=== PATIENT | male | born 1930 ===

== ENCOUNTER 2016-08-04 21:53 | Observation (INO) | payer MEDICARE ==
[2016-08-04 22:03] VITALS: BMI 22.0
--- NOTE | 2016-08-04 22:26 | ED PDOC ---
Arrival/HPI - General Chief Complaint: Trauma Time Seen by Provider: 08/04/16 22:21 Historian: Patient, Family - History of Present Illness Narrative History of Present Illness (Text): 08/04/16 22:26 Lawson Bartlett is an 86 year old male, whose past medical history includes chronic renal insufficiency on hemodialysis, CAD, aortic stenosis, and CHF, who presents to the ED accompanied by relative s/p fall. Relative states patient fell and hit his head against the floor while getting up from his recliner at 16 :00 today. Relative also notes patient attempted to supports himself and sustained an abrasion to his left elbow. Relative states patient feels fine but notes he regularly takes blood thinners. Patient was fully dialyzed today. Patient denies any loss of consciousness, vision changes, focal neurological deficits, fever, chills, chest pain, shortness of breath, nausea, vomiting, diarrhea, urinary symptoms, back pain, neck pain, headache, dizziness, or any other complaints. PMD: Dr. Rivera Surgical Training Specialist: Dr. Vasquez Time/Duration: Other (tonight) Symptom Onset: Gradual Activities at Onset: Rest, Light Context: Standing, Home Past Medical History - Provider Review Nursing Documentation Reviewed: Yes - Infectious Disease Hx of Infectious Diseases: None - Tetanus Immunization Tetanus Immunization: Unknown - Cardiac Hx Cardiac Disorders: Yes (CAD) Hx Hypertension: Yes - Pulmonary Hx Respiratory Disorders: No - Neurological Hx Neurological Disorder: Yes - HEENT Hx HEENT Disorder: Yes (glasses) Hx Cataracts: Yes (b/l sx) Hx Deafness: Yes (b/l hearing aids) - Renal Hx Dialysis: Yes Type of Dialysis Access: right jugular permacath Date of Last Dialysis Treatment: 08/04/16 Hx Renal Failure: Yes - Endocrine/Metabolic Hx Endocrine Disorders: No - Hematological/Oncological Hx Blood Transfusions: No Hx Blood Transfusion Reaction: No - Integumentary Hx Dermatological Disorder: No (BILATERAL LEG SKIN DRYNESS,FLAKY.SPIDER VEINS) - Musculoskeletal/Rheumatological Hx Arthritis: Yes - Gastrointestinal Hx Gastrointestinal Disorders: Yes Hx Gastroesophageal Reflux: Yes - Genitourinary/Gynecological Hx Genitourinary Disorders: No - Psychiatric Hx Emotional Abuse: No Hx Physical Abuse: No Hx Substance Use: No - Surgical History Hx Cardiac Catheterization: Yes Hx Coronary Stent: Yes (X3) - Anesthesia Hx Anesthesia Reactions: No Hx Malignant Hyperthermia: No - Suicidal Assessment Feels Threatened In Home Enviroment: No Family/Social History - Physician Review Nursing Documentation Reviewed: Yes Family/Social History: No Known Family HX Smoking Status: Former Smoker Hx Alcohol Use: No Hx Substance Use: No Hx Substance Use Treatment: No Allergies/Home Meds Allergies/Adverse Reactions: Allergies adhesive tape Allergy (Verified 08/04/16 22:04) RASH Home Medications: Home Meds Medication Instructions Recorded Confirmed Aspirin [Aspir 81] 81 mg PO DAILY 02/12/13 08/04/16 Febuxostat [Uloric] 40 mg PO TTS 11/25/14 08/04/16 Atorvastatin [Lipitor] 20 mg PO DAILY 08/04/16 08/04/16 Clopidogrel [Plavix] 75 mg PO DAILY 08/04/16 08/04/16 Midodrine [Proamatine] 5 mg PO DAILY 08/04/16 08/04/16 Tamsulosin [Flomax] 0.4 mg PO DAILY 08/04/16 08/04/16 Review of Systems - Physician Review All systems were reviewed & negative as marked: Yes - Review of Systems Constitutional: Normal. absent: Fevers Eyes: Normal ENT: Normal Respiratory: Normal. absent: SOB, Cough Cardiovascular: Normal. absent: Chest Pain Gastrointestinal: Normal. absent: Abdominal Pain, Diarrhea, Nausea, Vomiting Genitourinary Male: Normal. absent: Dysuria, Frequency, Hematuria, Urinary Output Changes Musculoskeletal: Normal. absent: Back Pain, Neck Pain Skin: Other (+abrasion to left elbow). absent: Rash Neurological: Normal. absent: Headache, Dizziness Endocrine: Normal Hemo/Lymphatic: Normal Psychiatric: Normal Physical Exam Vital Signs Reviewed: Yes Vital Signs Temp Pulse Pulse Pulse Resp BP Pulse Ox 08/05/16 02:45 90/62 L 08/05/16 02:00 91 H 08/05/16 01:54 97.6 F 90 20 86/51 L 96 08/05/16 01:35 98 F 80 20 98/60 L 97 08/05/16 01:26 90 90 20 08/04/16 23:41 98 F 88 20 98/60 L 97 08/04/16 22:10 97.4 F L 98 H 14 95/63 L 97 Temperature: Afebrile Blood Pressure: Normal Pulse: Regular Respiratory Rate: Normal Appearance: Positive for: Well-Appearing, Non-Toxic, Comfortable Pain Distress: None Mental Status: Positive for: Alert and Oriented X 3 - Systems Exam Head: Present: Atraumatic, Normocephalic Pupils: Present: PERRL Extroacular Muscles: Present: EOMI Conjunctiva: Present: Normal Mouth: Present: Moist Mucous Membranes Neck: Present: Normal Range of Motion Respiratory/Chest: Present: Clear to Auscultation, Good Air Exchange. No: Respiratory Distress, Accessory Muscle Use Cardiovascular: Present: Regular Rate and Rhythm, Normal S1, S2. No: Murmurs Abdomen: Present: Normal Bowel Sounds. No: Tenderness, Distention, Peritoneal Signs Back: Present: Normal Inspection Upper Extremity: Present: Other (Skin tear to left elbow with ecchymosis). No: Cyanosis, Edema Lower Extremity: Present: Normal Inspection. No: Edema Neurological: Present: GCS=15, CN II-XII Intact, Speech Normal Skin: Present: Warm, Dry, Normal Color. No: Rashes Psychiatric: Present: Alert, Oriented x 3, Normal Insight, Normal Concentration Medical Decision Making ED Course and Treatment: 08/04/16 22:26 Impression: 86 year old male presents s/p mechanical fall at 17:30. Plan: -- CT Head w/o contrast -- Reassess and disposition Prior Visits: Notes and results from previous visits were reviewed. On 05/21/2016, pt was seen in the ED for shortness of breath, bilateral lower extremity swelling, and wheezing. Pt was admitted to the hospital for further evaluation. Progress Notes: 08/04/16 23:06 Reviewed radiology, CT Head shows: 1. There is subdural hemorrhage along the right tentorium cerebelli and about the right middle cranial fossa. This measures 5-6 mm in thickness on series 2, image 18. 2. There is mild right frontal scalp hematoma. 3. Additional incidental and/or chronic findings as described. EKG, Labs, and Chest X-ray ordered. Paged neurosurgeon. 08/04/16 23:[address] Iverson, neurosurgeon covering for Dr. Talbot, who is aware and agrees with plan. Paged Dr. Rivera. 08/05/16 01:20 Reviewed EKG, sinus rhythm at 90 bpm. LAD. RBBB. Non-specific ST/T wave changes. - Lab Interpretations Lab Results: 08/04/16 23:31 08/04/16 23:31 Lab Results 08/04/16 23:31: WBC 3.6 L, RBC 3.26 L, Hgb 10.7 L, Hct 32.8 L, MCV 100.6, MCH 32.8, MCHC 32.6, RDW 17.7 H, Plt Count 63 L, MPV 10.4, Gran % 62.2, Lymph % ( Auto) 22.5, Victoria % (Auto) 9.3 H, Eos % (Auto) 5.2 H, Baso % (Auto) 0.8, Gran # 2.26, Lymph # 0.8 L, Victoria # 0.3, Eos # 0.2, Baso # 0.03, PT 12.3 H, INR 1.14 H, APTT 27.7, Sodium 135, Potassium 3.7, Chloride 97 L, Carbon Dioxide 30, Anion Gap 12, BUN 16, Creatinine 2.6 H, Est GFR ( Amer) 28, Est GFR (Non-Af Amer) 23, Random Glucose 103, Calcium 9.3, Total Bilirubin 0.6, AST 25, ALT 10, Alkaline Phosphatase 72, Total Protein 6.7, Albumin 3.7, Globulin 3.0, Albumin/ Globulin Ratio 1.2 I have reviewed the lab results: Yes - RAD Interpretation Narrative RAD Interpretations (Text): CT Head shows: Brain: There is subdural hemorrhage along the right tentorium cerebelli and about the right middle cranial fossa. There is moderate prominence of ventricles and sulci, compatible with moderate atrophy. There is moderate diminished density of the white matter bilaterally, consistent with moderate microangiopathy. No evidence of acute territorial infarction. Ventricles: See above. Bones/joints: Unremarkable. No acute fracture. Soft tissues: There is mild right frontal scalp hematoma. Sinuses: Unremarkable as visualized. No acute sinusitis. Mastoid air cells: Unremarkable as visualized. No mastoid effusion. IMPRESSION: 1. There is subdural hemorrhage along the right tentorium cerebelli and about the right middle cranial fossa. This measures 5-6 mm in thickness on series 2, image 18. 2. There is mild right frontal scalp hematoma. 3. Additional incidental and/or chronic findings as described. Radiology Orders: 08/04/16 22:28 HEAD W/O CONTRAST [CT] Stat 08/04/16 23:13 CHEST PORTABLE [RAD] Stat Pipe Joints Supervisor: Radiologist - Medication Orders Current Medication Orders: Atorvastatin Calcium (Lipitor) 20 mg PO DIN [facility] Last Admin: 08/05/16 17:13 Dose: 20 MG Home Med (Home Med) 1 unit PO TTS [facility] Discontinued Medications Aspirin (Ecotrin) 81 mg PO DAILY [facility] Last Admin: 08/05/16 09:38 Dose: 81 MG Clopidogrel Bisulfate (Plavix) 75 mg PO DAILY [facility] Last Admin: 08/05/16 09:38 Dose: 75 MG Sodium Chloride (Sodium Chloride 0.9%) 250 mls @ 999 mls/hr IV .Q16M STA Stop: 08/05/16 02:14 Last Admin: 08/05/16 02:05 Dose: 999 MLS/HR eMAR Start Stop Document 08/05/16 02:05 DS (Rec: 08/05/16 02:10 DS [id number]) Intravenous Solution Start Date 08/05/16 Start Time 02:05 End Date 08/05/16 End time 02:20 Total Infusion Time 15 NIHSS Scale (Cabot) Time Performed: 22:26 - How Severe is the Stoke Baseline Level of Consciousness: 0=Alert LOC to Questions: 0=Both comments correct LOC to commands: 0=Obeys both correctly Best Gaze: 0=Normal Visual: 0=No visual loss Facial: 0=Normal Motor Arm - Left: 0=No drift Motor Arm - Right: 0=No drift Motor Leg - Left: 0=No drift Motor Leg - Right: 0=No drift Limb Ataxia: 0=Absent Sensory: 0=Normal Best Language: 0=No aphasia Dysarthia: 0=Normal articulation Extinction & Inattention (Neglect): 0=Normal, no object Score: 0 Risk Level: No Stroke Risk rTPA Inclusion/Exclusion - Refusal of Treatment Patient Refused Treatment: No - Inclusion Criteria for Altepase Patient is 18 years or Older: Yes The Clinical Diagnosis of Ischemic Stroke That is Causing a Potentially Disabling Neurological Deficit: No Time of Onset is Well Established to be Less Than 270 Minute Before Treatment Would Begin: No Risk/Benefit Discussed With Patient/Family Member Present: Yes - Exclusion Criteria for Altepase Uncontrolled Hypertension at Time of Treatment (Systolic BP above 185 or Diastolic BP above 110 mmHg): No Evidence of an Intracranial Hemorrhage: Yes - Scribe Statement The provider has reviewed the documentation as recorded by the Scribe Paty Jennifer Provider Attestation: All medical record entries made by the Isael were at my direction and personally dictated by me. I have reviewed the chart and agree that the record accurately reflects my personal performance of the history, physical exam, medical decision making, and the department course for this patient. I have also personally directed, reviewed, and agree with the discharge instructions and disposition. Disposition/Present on Arrival - Present on Arrival Any Indicators Present on Arrival: No History of DVT/PE: No History of Uncontrolled Diabetes: No Urinary Catheter: No History of Decub. Ulcer: No History Surgical Site Infection Following: None - Disposition Have Diagnosis and Disposition been Completed?: Yes Diagnosis: Subdural hematoma Disposition: HOSPITALIZED Disposition Time: 23:40 Condition: GOOD
--- NOTE | 2016-08-04 23:03 | CT ---
EXAM: CT Head Without Intravenous Contrast CLINICAL HISTORY: 86 years old, male; Injury or trauma; Fall TECHNIQUE: Axial computed tomography images of the head/brain without intravenous contrast. This CT exam was performed using one or more of the following dose reduction techniques: automated exposure control, adjustment of the mA and/or kV according to patient size, and/or use of iterative reconstruction technique. COMPARISON: No relevant prior studies available. FINDINGS: Brain: There is subdural hemorrhage along the right tentorium cerebelli and about the right middle cranial fossa. There is moderate prominence of ventricles and sulci, compatible with moderate atrophy. There is moderate diminished density of the white matter bilaterally, consistent with moderate microangiopathy. No evidence of acute territorial infarction. Ventricles: See above. Bones/joints: Unremarkable. No acute fracture. Soft tissues: There is mild right frontal scalp hematoma. Sinuses: Unremarkable as visualized. No acute sinusitis. Mastoid air cells: Unremarkable as visualized. No mastoid effusion. IMPRESSION: 1. There is subdural hemorrhage along the right tentorium cerebelli and about the right middle cranial fossa. This measures 5-6 mm in thickness on series 2, image 18. 2. There is mild right frontal scalp hematoma. 3. Additional incidental and/or chronic findings as described.
[2016-08-04 23:41] LABS: ADD MANUAL DIFF? NO
[2016-08-04 23:44] LABS: BASO # 0.03 K/mm3 (0.0-2.0); BASO % 0.8 % (0.0-3.0); EOS # 0.2 (0.0-0.7); EOS % 5.2 % (1.5-5.0); GRAN # 2.26 (1.4-6.5); GRAN % 62.2 % (50.0-68.0); HEMATOCRIT 32.8 % (42.0-52.0); LYMPH # 0.8 (1.2-3.4); LYMPH % 22.5 % (22.0-35.0); MEAN CELL VOLUME 100.6 fL (80.0-105.0); MEAN CORPUSCULAR HEMOGLOBIN 32.8 pg (25.0-35.0); MEAN CORPUSCULAR HGB CONC 32.6 g/dl (31.0-37.0); MEAN PLATELET VOLUME 10.4 fl (7.0-11.0); MONO # 0.3 (0.1-0.6); MONO % 9.3 % (1.0-6.0); PLATELET COUNT 63 10^3/uL (120.0-450.0); RED CELL DISTRIBUTION WIDTH 17.7 % (11.5-14.5); WHITE BLOOD COUNT 3.6 10^3/ul (4.5-11.0)
[2016-08-04 23:55] LABS: ALB/GLOB RATIO 1.2 (1.1-1.8); BILIRUBIN,TOTAL 0.6 mg/dL (0.2-1.3); CALCIUM 9.3 mg/dL (8.4-10.5); POTASSIUM 3.7 mmol/L (3.6-5.0); TOTAL PROTEIN 6.7 g/dL (5.8-8.3)
[2016-08-04 23:56] LABS: INR 1.14 (0.93-1.08); PARTIAL THROMBOPLASTIN TIME 27.7 Seconds (23.7-30.8)
[2016-08-05] MEDS ORDERED: Sodium Chloride 0.9% 250 ML IV STA (01:59)
[2016-08-05 06:53] LABS: ADD MANUAL DIFF? NO
[2016-08-05 07:00] LABS: BASO # 0.03 K/mm3 (0.0-2.0); BASO % 0.9 % (0.0-3.0); EOS # 0.2 (0.0-0.7); EOS % 5.5 % (1.5-5.0); GRAN # 1.98 (1.4-6.5); GRAN % 60.3 % (50.0-68.0); HEMATOCRIT 30.9 % (42.0-52.0); LYMPH # 0.8 (1.2-3.4); LYMPH % 23.5 % (22.0-35.0); MEAN CORPUSCULAR HEMOGLOBIN 32.7 pg (25.0-35.0); MEAN CORPUSCULAR HGB CONC 32.4 g/dl (31.0-37.0); MEAN PLATELET VOLUME 9.6 fl (7.0-11.0); MONO # 0.3 (0.1-0.6); MONO % 9.8 % (1.0-6.0); PLATELET COUNT 59 10^3/uL (120.0-450.0); RED CELL DISTRIBUTION WIDTH 17.7 % (11.5-14.5); WHITE BLOOD COUNT 3.3 10^3/ul (4.5-11.0)
--- NOTE | 2016-08-05 08:41 | CARD ---
APPROVED REPORT EKG Measurement Heart [id number] CT 208P [id number] <Conclusion> Sinus rhythm with premature supraventricular complexes Left axis deviation Right bundle branch block Abnormal ECG
--- NOTE | 2016-08-05 09:20 | RAD ---
HISTORY: fall COMPARISON: No prior. FINDINGS: LUNGS: Right lower lobe infiltrate. PLEURA: Right pleural effusion. CARDIOVASCULAR: Normal. OSSEOUS STRUCTURES: No significant abnormalities. VISUALIZED UPPER ABDOMEN: Normal. OTHER FINDINGS: Right Port-A-Cath in place. Status post CABG. IMPRESSION: Right lower lobe infiltrate and effusion.
--- NOTE | 2016-08-05 13:25 | CON ---
DATE: 08/04/2016 An 86-year-old gentleman, fell 8 hours or so before arrival in the ER, was on Plavix and aspirin, was found to have an infinitesimal extraaxial hemorrhage along the right tentorium of no clinical signif icance. Would not have any recommendations. There is no neurosurgical involvement required. Dennis Iverson MD cc: [id number] TT: 08/05/2016 13:24:07 Confirmation # [id number] Dictation # [id number] mn
--- NOTE | 2016-08-05 15:27 | HP ---
HISTORY OF PRESENT ILLNESS: The patient is an 86-year-old [place] male with a long history of hyper tension, chronic renal insufficiency, stage IV, on dialysis, status post TAVR procedure for aortic st enosis, status post acute renal failure, on top of chronic renal insufficiency. The patient is prese ntly on dialysis, also a history of insulin-dependent diabetes mellitus, and hypertension. The patie nt was at home yesterday and apparently had fallen from his chair an developed a contusion of the rig ht orbit and face, with a subdural hematoma. The patient is awake and alert, but does not completely able to elucidate the incidence of what occurred last evening. The patient was brought in last [facility] t and admitted on 08/04/2016 for his subdural, change in mental status, confusion, and scalp and face contusion. The patient is a nondrinker, nonsmoker. He has no history of illicit drug abuse. REVIEW OF SYSTEMS: Positive only for confusion, disorientation, head pain, scalp pain. The patient also complains of some whistling in his chest. Denies any chest pain, palpitations, shortness of miky ath, diaphoresis. RESPIRATORY: Negative for shortness of breath, cough, sputum production. GASTROI NTESTINAL: Negative for nausea, vomiting, diarrhea, abdominal pain. MUSCULOSKELETAL: Positive only for head and scalp pain. PHYSICAL EXAMINATION: GENERAL: Shows a well-developed, elderly Hungarian male lying in bed, awake and alert, and tolerating his breakfast well. NEUROLOGIC: Grossly intact. HEENT: Extraocular muscles are intact. Pupils are equal and reactive to light and accommodation. There is a large ecchymosis in the periorbital area. The patient is oriented to person and place, bu t not to time at this point, and does not have full recollection of the preceding events. His speech is fluent. NEUROLOGIC: His strength is normal in the upper and lower extremities. His reflexes are 2+ and bris k. His sensation is normal. Balance and cerebellar is not assessed at this point. CHEST: Clear to auscultation. HEART: Regular sinus rhythm. Systolic ejection murmur, left sternal border, without radiation. ABDOMEN: Soft. EXTREMITIES: Without cyanosis, clubbing, or edema. SKIN: A large ecchymosis of the right periorbital area and the right temporal scalp. IMPRESSION: 1. Fall with contusion of the scalp and right periorbital area and subdural hematoma. 2. Possible syncope. 3. Dialysis. 4. End-stage renal disease. 5. Aortic stenosis, status post TAVR procedure. 6. Coronary artery disease. Gwyn Rivera MD cc: [id number] TT: 08/05/2016 15:27:32 vn
--- NOTE | 2016-08-05 23:59 | CP.PCM.PN ---
Subjective - Date & Time of Evaluation Date of Evaluation: 08/05/16 Time of Evaluation: 23:56 - Subjective Subjective: Nurse Javad tells me that blood pressure is 88/56.He is asymptomatic. Patient has no complaints. Medical record was reviewed. 86 year old male was admitted with history of fall ,syncope with subdural hematoma,right periorbital contusion. Has PMH of HTN, CAD,MS, CHF,CKD-IV, S/P TAVR for aortic stenosis, permacath placement. Objective - Vital Signs/Intake and Output Vital Signs (last 24 hours): Temp Pulse Resp BP Pulse Ox 98.3 F 92 H 20 84/53 L 100 08/05/16 18:00 08/05/16 22:00 08/05/16 18:00 08/05/16 18:00 08/05/16 18:00 Intake and Output: 08/05/16 08/06/16 18:59 06:59 Intake Total 600 Output Total 1 Balance 599 - Medications Medications: Current Medications Atorvastatin Calcium (Lipitor) 20 mg PO DIN [facility] Last Admin: 08/05/16 17:13 Dose: 20 mg Home Med (Home Med) 1 unit PO TTS [facility] - Labs Labs: 08/05/16 06:51 PT 12.3 Seconds (9.9-11.8) H 08/04/16 23:31 INR 1.14 (0.93-1.08) H 08/04/16 23:31 APTT 27.7 Seconds (23.7-30.8) 08/04/16 23:31 - Constitutional Appears: Well, No Acute Distress - Head Exam Head Exam: ATRAUMATIC, NORMAL INSPECTION, NORMOCEPHALIC - Eye Exam Eye Exam: Normal appearance Additional comments: Right periorbital echymosis present. - ENT Exam ENT Exam: Normal External Ear Exam Additional comments: Right ear has hearing AID. - Neck Exam Neck Exam: Normal Inspection - Respiratory Exam Respiratory Exam: NORMAL BREATHING PATTERN - Cardiovascular Exam Cardiovascular Exam: absent: JVD - GI/Abdominal Exam GI & Abdominal Exam: absent: Distended - Rectal Exam Rectal Exam: Deferred - Extremities Exam Extremities Exam: Normal Inspection - Back Exam Back Exam: NORMAL INSPECTION - Neurological Exam Neurological Exam: Alert, Oriented x3 - Psychiatric Exam Psychiatric exam: Normal Affect, Normal Mood - Skin Skin Exam: Normal Color Assessment and Plan - Assessment and Plan (Free Text) Assessment: A/P:Hypotension vs .Low blood pressure reading. Hx of CAD. Hx of MS. CKD. Deafness. Anemia. Recheck blood pressure.-/62.
[2016-08-06 05:32] VITALS: BP 89/55; PULSE 89; RESP 19; TEMP 98.3; O2SAT 98
--- NOTE | 2016-08-06 08:29 | CON ---
DATE: 08/05/2016 HISTORY OF PRESENT ILLNESS: This is an 86-year-old male with a past medical history of hypertension and chronic renal disease on dialysis. The patient has diabetes, hypertension and on dialysis. The patient fell from the chair and developed a contusion on the right periorbital area and forehead and was brought to the hospital and found to have subdural hematoma and was seen by Dr. Dennis Iverson, helene tijerinaurgeon and no surgical intervention. PAST MEDICAL HISTORY: As above. REVIEW OF SYSTEMS: A 10-point review of system was negative except for confusion and right periorbit al hematoma. PHYSICAL EXAMINATION: HEENT: Normocephalic, atraumatic. Right periorbital area secondary to fall. NEUROLOGIC: Alert, awake, oriented to self and place. Cranial nerves II through XII were tested. P upils reactive. Spontaneous movement of all the extremities noted. Deep tendon reflexes 1+. Both p lantars are downgoing. Sensory appears intact. Cerebellar and gait deferred. IMPRESSION: Syncope and subdural hematoma secondary to fall, multiple medical problems, on dialysis because of end-stage renal disease, hypertension and diabetes. Workup is in progress. Will followup . Pk German MD cc: [id number] TT: 08/05/2016 16:48:57 Confirmation # [id number] Dictation # [id number] judy
--- NOTE | 2016-08-06 09:24 | PN ---
DATE: 08/06/2016 An 86-year-old Palestinian male, status post TAVR, status post CAD, end-stage renal disease, status post fall with contusion of the right temporal area, periorbital area and a subdural hematoma. The patie nt is for repeat CT. Aspirin and Plavix are on hold. The patient will have repeat CT. If the subdu ral has not changed, patient will be discharged home in improved condition. PHYSICAL EXAMINATION: GENERAL: The patient is awake, alert, oriented x 3. NEUROLOGIC: Grossly intact. Physical examination is unchanged. REVIEW OF SYSTEMS: A 12-point is unremarkable. Gwyn Rivera MD cc: [id number] TT: 08/06/2016 09:23:59 Confirmation # [id number] Dictation # [id number] en
--- NOTE | 2016-08-06 10:29 | CT ---
PROCEDURE: CT HEAD WITHOUT CONTRAST. HISTORY: fall- subdural hemorhage follow up COMPARISON: 08/04/2016 TECHNIQUE: Axial computed tomography images were obtained through the head/brain without intravenous contrast. Radiation dose: Total exam DLP = 756.49 mGy-cm. This CT exam was performed using one or more of the following dose reduction techniques: Automated exposure control, adjustment of the mA and/or kV according to patient size, and/or use of iterative reconstruction technique. FINDINGS: HEMORRHAGE: There is redemonstration of evolving subdural hemorrhage in the right middle cranial fossa and along the right tentorium cerebellum, slightly decreased in size since the prior examination. BRAIN: There is no mass or mass effect. There are mild chronic microangiopathic changes. VENTRICLES: There is moderate global parenchymal volume loss and proportionate enlargement of the ventricles and cortical sulci with frontal predominance. CALVARIUM: The skull base and calvarium are normal. PARANASAL SINUSES: Predominantly clear. MASTOID AIR CELLS: Predominantly clear. OTHER FINDINGS: None. IMPRESSION: Expected evolution of known right temporal subdural hemorrhage and subdural hemorrhage along the right tentorium cerebelli. Mild chronic microangiopathic changes and moderate global parenchymal volume loss with frontal predominance.
--- NOTE | 2016-08-06 10:58 | CON ---
DATE: 08/06/2016 CARDIOLOGY CONSULTATION HISTORY: The patient is an 86-year-old male who presented with a fall. He was found to have a subdu ral hematoma. PAST MEDICAL HISTORY: Notable for critical aortic stenosis in which he was sent to [facility] for a TAVR. In addition, in preparation for the TAVR, the patient underwent PTCA and stent with a drug-eluting st ent in 05/2016. The patient also suffers from end-stage renal disease in which he has been treated with dialysis. Th e patient is awake, alert. No shortness of breath, no chest pain. SOCIAL HISTORY: The patient lives at home. REVIEW OF SYSTEMS: A 14-point review of systems was free of cardiac symptomatology. PHYSICAL EXAMINATION: VITAL SIGNS: Blood pressure is 90 systolic. Heart rate in the 80s. NECK: Negative JVD. LUNGS: Without rales. HEART: With S1, S2. II/ systolic ejection murmur. EXTREMITIES: Without edema. EKG shows no changes from the previous. LABORATORY DATA: Hemoglobin is 10.0. BUN and creatinine are 16 and 2.6. IMPRESSION: 1. Status post fall with subdural hematoma. 2. No neurosurgical intervention is necessary, as per consultations. 3. Stable angina. 4. History of aortic stenosis. 5. History of percutaneous transluminal coronary angioplasty and stent with a drug-eluting stent. Given these findings, the patient should remain on Plavix unless it is felt by neurosurgery that Valerio vix needs to be stopped because of subdural hematoma. His drug-eluting stent requires Plavix. If we stop Plavix, he would be at increased risk for acute stent thrombosis, which would result in a myoca rdial infarction. Preston Vasquez MD cc: [id number] TT: 08/06/2016 10:57:45 Confirmation # [id number] Dictation # [id number] len
--- NOTE | 2016-08-06 12:34 | PN ---
DATE: 08/06/2016 ADDENDUM The neurosurgeon recommended stopping aspirin and Plavix for the next week. However, I called the ne urosurgeon back with my concerns about a drug-eluting stent that was placed in May. After collab orative discussion of risks, benefits, it was decided that the patient will be on Plavix daily and we will stop his aspirin for 1 week. We will follow him up as an outpatient. Preston Vasquez MD cc: [id number] TT: 08/06/2016 12:34:08 Confirmation # [id number] Dictation # [id number] en
--- NOTE | 2016-08-07 05:20 | CON ---
DATE: 08/06/2016 REASON FOR CONSULTATION: Fall, anemia, ESRD. HISTORY OF PRESENTING ILLNESS: An 86-year-old male known to me from outpatient hemodialysis, was bro ught to the Emergency Room on Saturday because of a fall at home. As per , patient was sitting i n recliner. He was trying to get up. Probably did not put the foot rest down and stumbled and fell. Currently, he is seen sitting in bed. He is awake. He is alert. He is comfortable. He complains of pain on the right side of his forehead, on the right side of the right eye. He denies any chest tightness. He denies any palpitations. He denies any shortness of breath. PAST MEDICAL AND SURGICAL HISTORY: Hypertension, congestive heart failure, cardiomyopathy, aortic st enosis, recent PTCA and stent in 05/2016, TAVR, anemia of chronic kidney disease, ESRD, hypotension. FAMILY HISTORY: Noncontributory. SOCIAL HISTORY: No smoking, no alcohol use, no IV drug abuse. ALLERGIES: No known drug allergies. MEDICATIONS: Flomax 0.4, Lipitor 20, Plavix 75, midodrine 5 mg daily. REVIEW OF SYSTEMS: All systems are reviewed, pertinent positives as mentioned in history of presenti ng illness, rest unremarkable. PHYSICAL EXAMINATION: GENERAL: Elderly male sitting in bed. VITAL SIGNS: Blood pressure 90/55, heart rate 90, respiratory rate 18, temperature 98. HEENT: Normocephalic, atraumatic, positive pallor. NECK: Supple, no JVD. LUNGS: Bilateral equal air entry, bilateral rhonchi. CARDIAC: S1, S2, positive murmur, no rub. ABDOMEN: Soft, nondistended, nontender, bowel sounds present. EXTREMITIES: 1+ pitting edema of the lower extremities. LABORATORY DATA: WBC 3.3, hemoglobin 10, hematocrit 30.9, platelets 59. Sodium 135, potassium 3.7, chloride 97, CO2 of 30, BUN 16, creatinine 2.6, glucose 103, calcium 9.3, AST 25, ALT 10, albumin 3.7. ASSESSMENT AND PLAN: 1. Fall at home resulting in right temporal subdural hematoma. 2. Hypotension. 3. Anemia of chronic kidney disease. 4. Cardiomyopathy, congestive heart failure, coronary artery disease, percutaneous transluminal gilbert nary angioplasty and stent, aortic stenosis, transcatheter aortic valve replacement. 5. Thrombocytopenia. PLAN: 1. Cardiology and neurosurgery notes read. The patient to stop aspirin. 2. Monitor platelet count closely. 3. Increase ProAmatine to 10 mg on dialysis days. 4. Increase ultrafiltration during dialysis. 5. Monitor blood pressure closely. Thank you for the courtesy of this consultation. Gwen Matt MD cc: [phone] TT: 08/07/2016 05:19:46 Confirmation # [id number] Dictation # [id number] jn
[2016-08-07] MEDS ORDERED: FEBUXOSTAT 40 MG PO SCH (10:00)
--- NOTE | 2016-08-07 16:40 | DS ---
The patient is an 86-year-old [place] male admitted to the hospital with fall, contusion of the righ t face and periorbital area and a subdural hematoma. Repeat head CT did not show ____ evolution of t he hematoma, no further bleed. The case was discussed with neurosurgery and also his claim auditor, Margaret Vasquez. We will hold his Plavix and aspirin for approximately 1 week and then restart. At this poi nt, the patient is awake and oriented x 3. Neurologic examination grossly intact. The patient also has history of end-stage renal disease on dialysis, status post TAVR procedure for aortic stenosis an d CAD. FINAL DISCHARGE DIAGNOSES: Fall, subdural hematoma, contusion of the right face and scalp, history o f end-stage renal disease on dialysis, history of aortic stenosis treated with transcatheter aortic v alve replacement and history of coronary artery disease. Gwyn Rivera MD cc: [id number] TT: 08/07/2016 16:39:49 ms
== END 2016-08-06 13:19 | disposition home or self-care (01) ==
LOC: ED 21:53 → ERH 23:54 → 2RNO 08-05 01:34
PROVIDERS: ADMIT Internal Medicine; ATTEND Internal Medicine
DX: S06.5X0A Traumatic subdural hemorrhage without loss of consciousness, initial encounter (principal); S05.11XA Contusion of eyeball and orbital tissues, right eye, initial encounter; S00.03XA Contusion of scalp, initial encounter; W07.XXXA Fall from chair, initial encounter; I13.2 Hypertensive heart and chronic kidney disease with heart failure and with stage 5 chronic kidney disease, or end stage renal disease; N18.6 End stage renal disease; I50.9 Heart failure, unspecified; Z99.2 Dependence on renal dialysis; I25.10 Atherosclerotic heart disease of native coronary artery without angina pectoris; I35.0 Nonrheumatic aortic (valve) stenosis; E11.22 Type 2 diabetes mellitus with diabetic chronic kidney disease; Z79.4 Long term (current) use of insulin; I42.9 Cardiomyopathy, unspecified; D63.1 Anemia in chronic kidney disease; D69.6 Thrombocytopenia, unspecified; H91.90 Unspecified hearing loss, unspecified ear; I25.2 Old myocardial infarction; Y93.89 Activity, other specified; Y92.098 Other place in other non-institutional residence as the place of occurrence of the external cause; Y99.8 Other external cause status; Z95.2 Presence of prosthetic heart valve; Z95.5 Presence of coronary angioplasty implant and graft; Z79.02 Long term (current) use of antithrombotics/antiplatelets
CPT/HCPCS: 36415; 70450; 71010; 80053; 85025; 85610; 85730; 93005; 99284; G0378; J7040

== ENCOUNTER 2016-08-30 10:29 | Inpatient (IN) | payer MEDICARE, BC ==
[2016-08-29 13:55] VITALS: BMI 21.9
[2016-08-30] MEDS ORDERED: Lidocaine 1% Inj (20ml) ONE (11:00)
[2016-08-30] MEDS ORDERED: Thrombin Topical 5,000 IU Spray Kit ONE (11:00)
[2016-08-30] MEDS ORDERED: Propofol 10 mg/ml Inj (20 ML) ONE (11:23)
[2016-08-30] MEDS ORDERED: Midazolam 2 MG/2 ML VIAL ONE (11:23)
[2016-08-30] MEDS ORDERED: Bupivacaine 0.5% Inj(30mL) ONE ×2 (11:24→12:26)
[2016-08-30] MEDS ORDERED: Vancomycin 1 g Inj ONE (11:58)
[2016-08-30] MEDS ORDERED: Iohexol 240 (50 ml) ONE ×2 (12:01→12:56)
[2016-08-30] MEDS ORDERED: Etomidate 20 mg/10ml Inj IV ONE (12:01)
[2016-08-30] MEDS: Bupivacaine 0.5% Inj(30mL) ONE (13:01)
[2016-08-30] MEDS ORDERED: Phenylephrine 10 mg/ml Inj ONE (13:03)
--- NOTE | 2016-08-30 14:52 | PCM.SURG1 ---
Surgeon's Initial Post Op Note - Surgeon's Notes Surgeon: Dr. Calderon Resp Therapist: Dr. Edwards PGY-1 Type of Anesthesia: General IV Pre-Operative Diagnosis: Renal Failure Operative Findings: See operative note Post-Operative Diagnosis: Renal Failure Operation Performed: Brachio-subclavian hybrid AV graft Specimen/Specimens Removed: none Estimated Blood Loss: EBL {In ML}: 200 Blood Products Given: N/A Drains Used: No Drains Post-Op Condition: Good Date of Surgery/Procedure: 08/30/16 Time of Surgery/Procedure: 14:52
[2016-08-30] MEDS ORDERED: Sodium Chloride 0.9% 1,000 ML IV SCH (15:00)
[2016-08-30] MEDS ORDERED: Morphine 2 mg/ml ISec IVP PRN (15:01)
[2016-08-30] MEDS ORDERED: Morphine 2 mg/ml ISec ONE (15:24)
[2016-08-30] MEDS ORDERED: Morphine 2 mg/ml ISec IVP ONE (15:26)
--- NOTE | 2016-08-30 15:58 | OP ---
PROCEDURE DATE: 08/30/2016 PREOPERATIVE DIAGNOSIS: End-stage renal disease. POSTOPERATIVE DIAGNOSIS: End-stage renal disease. PROCEDURE: Left brachial subclavian AV graft using hybrid graft anastomosed to an Acuseal 24-hour cannulation graft. Exploration of the axillary vein. SURGEON: Dr. Maci Calderon. TRAINING AND DOCUMENTATION SPECIALIST: Dr. Anne Edwards ANESTHESIA: General. PROCEDURE NOTE: The patient was brought to the OR and placed supine on the OR table. After adequate general anesthesia had been accomplished, the left chest and upper extremities were prepped with ChloraPrep and draped out as a sterile field. An incision was made over the axillary vein. The incision was extended down through subcutaneous tissue. The pectoralis major was transected partially to expose the axilla. The axillary vein was dissected out and looped out using vessel loop. It is very small. Venogram via that showed that the entire axillary vein is very small, but the subclavian vein was of good size. We attempted to pass a 12-Jamaican sheath over the guidewire into the axillary vein, but the vein was tearing, so we elected to ligate the vein and proceeded with dissection of the subclavian vein. An infraclavicular incision was made with the arm in the abducted position. Incision was taken down to the pectoralis major muscle, which was split along its fibers. The head of the pectoralis minor muscle was transected. The subclavian vein was easily dissected out. It measured approximately 1 cm in diameter. It was looped by using vessel loop. Subclavian venogram showed a good size subclavian vein, draining into an even larger size innominate vein. After that, the guidewire was exchanged for an 0.035 Glidewire and a 14-Jamaican sheath dilator unit passed into the subclavian vein. The 8 mm stent x 10 cm stent Roff-Sebastien hybrid graft was passed over the guidewire into the subclavian vein. The sheath was removed by peeling back the graft. The stent was deployed by pulling on the attachment and after that, the stent was tacked down to the subclavian using an 8 mm x 6 cm balloon. After the stent was tacked down , completion graft to subclavian venogram showed good apposition of the graft and free drainage into the right atrium. The graft was then anastomosed to a 7 tapered to 4 mm Acuseal Roff-Sebastien graft using 6-0 Prolene continuous suture. The Acuseal graft was then tunneled subcutaneously to the brachial artery just above the antecubital fossa. The Acuseal graft, the tapered end was anastomosed to the brachial artery in an end- to-side fashion using 6-0 Prolene continuous suture. Upon completion of the anastomosis, all occlusive tape was removed and there is an audible bruit over the anastomosis. After that, the patient was bleeding profusely despite 2 units of platelet transfusion. Incision was closed in multiple layers with the 2-0 Monocryl continuous suture for the subcutaneous tissue and skin riana for skin for the axilla and subclavian. The brachial area, the skin was closed with 4-0 Monocryl subcuticular suture. Sterile dressing was applied. Prior to leaving the operating room, the patient was extubated and there was an audible bruit over the graft. Maci Calderon MD cc: [id number] TT: 08/30/2016 15:57:45 lindesy PHILLIPS
--- NOTE | 2016-08-30 19:16 | CON ---
DATE: 08/30/2016 REASON FOR CONSULTATION: Severe aortic stenosis. HISTORY OF PRESENT ILLNESS: The patient is an 86-year-old [place] male who has end-stage renal disea se on hemodialysis, history of coronary artery disease, status post coronary artery bypass surgery, f ollowed by intervention with patent stents and patent CLANCY graft to the LAD and patent saphenous vein graft, circumflex artery, with totally occluded saphenous vein graft to the right coronary artery an d diagonal branch on recent cardiac catheterization performed in May of this year. At that time, the patient had successful PTCA and stent to new lesions in the distal CLANCY and mid LAD. The patient is also known to have critical aortic stenosis and is awaiting TAVR. The patient today unde rwent left subclavian AV graft by Dr. Calderon. The patient was admitted because of low platelets. The patient was reported to have had sinus rhythm during the surgery. The patient, at this time, denies any chest pain or shortness of breath. MEDICATIONS: The patient is on morphine sulfate 2 mg intravenously q. 15 hours p.r.n. for pain. HOME MEDICATIONS: Include Flomax, ProAmatine, Lipitor and Plavix. PHYSICAL EXAMINATION: GENERAL: The patient is an elderly male who does not appear to be in acute distress. VITAL SIGNS: Blood pressure 91/52, heart rate 82, temperature 97.3, respirations 16. HEENT: Pale conjunctivae. CHEST: Clear. HEART: S1, S2 regular. EXTREMITIES: 1+ pitting edema. LABORATORIES: Today, CBC: WBC 2.5, hemoglobin 10.6, hematocrit 31.5, platelet count 59,000. Today's SMA-7 in the morning, sodium 139, potassium 2.6, chloride 97, CO2 35, glucose 84, BUN 5, creatinine 0.7. ASSESSMENT: 1. Status post left subclavian AV fistula. 2. Anemia, thrombocytopenia and leukopenia. 3. Severe aortic stenosis. 4. Coronary artery disease status post coronary artery bypass surgery, as well as multiple coronary interventions, most recent one in May of this year. PLAN: The patient will have telemetry applied once unit is available. In the meantime, I will obtai n a 12-lead EKG now, CBC and BMP as well as PT and PTT. Once platelets have improved, the patient wi ll be placed back on Plavix therapy. In the meantime, the patient will be restarted on Lipitor and P roAmatine. Cristopher Lopez MD cc: [id number] TT: 08/30/2016 19:15:42 Confirmation # [id number] Dictation # [id number] rn
[2016-08-30 19:45] LABS: HEMATOCRIT 26.6 % (42.0-52.0); MEAN CELL VOLUME 104.3 fL (80.0-105.0); MEAN CORPUSCULAR HEMOGLOBIN 33.7 pg (25.0-35.0); MEAN CORPUSCULAR HGB CONC 32.3 g/dl (31.0-37.0); MEAN PLATELET VOLUME 9.4 fl (7.0-11.0); RED CELL DISTRIBUTION WIDTH 17.7 % (11.5-14.5); WHITE BLOOD COUNT 6.2 10^3/ul (4.5-11.0)
[2016-08-30 20:02] LABS: CALCIUM 8.9 mg/dL (8.4-10.5); POTASSIUM 3.6 mmol/L (3.6-5.0)
[2016-08-31] MEDS ORDERED: Oxycodone/Acetaminophen 2.5/325 mg Tab PO STA ×2 (00:13→03:27)
[2016-08-31] MEDS ORDERED: Iohexol 240 (50 ml) ONE (09:00)
[2016-08-31] MEDS ORDERED: Absorbable Gelatin Sponge Size 100 ONE (09:00)
[2016-08-31] MEDS ORDERED: Liquid Adhesive TOP ONE (09:00)
[2016-08-31] MEDS ORDERED: Thrombin Topical 20,000 Intl Units Spray Kit TOP ONE (09:01)
[2016-08-31] MEDS ORDERED: Lidocaine 1% Inj (20ml) ONE (09:01)
[2016-08-31] MEDS ORDERED: Bupivacaine 0.5% Inj(30mL) ONE (09:01)
--- NOTE | 2016-08-31 09:10 | CARD ---
APPROVED REPORT EKG Measurement Heart [id number] IA 106P [id number] <Conclusion> Sinus rhythm with short IA with premature supraventricular complexes Left axis deviation Right bundle branch block Possible Lateral infarct, age undetermined Inferior infarct, age undetermined Abnormal ECG
[2016-08-31] MEDS ORDERED: Midazolam 2 MG/2 ML VIAL ONE ×5 (10:18→11:57)
[2016-08-31] MEDS ORDERED: Vancomycin 1 g Inj ONE (10:24)
[2016-08-31] MEDS: Bupivacaine 0.5% Inj(30mL) ONE (10:30)
[2016-08-31] MEDS ORDERED: Phenylephrine 10 mg/ml Inj ONE (10:33)
[2016-08-31] MEDS ORDERED: Protamine 50mg/5mL Inj IV ONE (11:41)
[2016-08-31] MEDS ORDERED: Nitroglycerin 50mg in D5W 50 MG/250 ML BOTTLE IV ONE (11:52)
--- NOTE | 2016-08-31 12:27 | CON ---
DATE: 08/31/2016 REASON FOR CONSULTATION: Low blood pressure, need for dialysis, decreased sensations in left hand. HISTORY OF PRESENTING ILLNESS: An 86-year-old male known to me from outpatient hemodialysis, was adm itted yesterday after he had a left subclavian AV graft placed by Dr. Calderon. The patient was admitted because of thrombocytopenia. The patient received 2 units of platelets yesterday. This morning, is complaining of decreased sensations in the left hand. Also, in the left forearm. The patient is sc heduled to go for surgery again. Doppler pulses on the left hand were very weak. The patient denies any pain. He denies any fever, chills. He denies any shortness of breath. He de nies any chest tightness. PAST MEDICAL AND SURGICAL HISTORY: Longstanding hypertension, cardiomyopathy, coronary artery diseas e, history of coronary artery bypass graft, history of PTCA and stents, critical , ESRD, anemia, lo w blood pressure now, secondary hyperparathyroidism. FAMILY HISTORY: Noncontributory. SOCIAL HISTORY: No smoking, no alcohol use, no IV drug abuse. ALLERGIES: No known drug allergies. MEDICATIONS AT HOME: Had been Uloric, Plavix, Lipitor, ProAmatine, Flomax. CURRENT MEDICATIONS: Lipitor, ProAmatine, morphine. REVIEW OF SYSTEMS: All systems reviewed, pertinent positives are mentioned in the history of present ing illness, rest unremarkable. PHYSICAL EXAMINATION: GENERAL: Elderly male, lying in bed. VITAL SIGNS: Blood pressure 84/55, heart rate 97, respiratory rate 18, temperature 97.3. HEENT: Normocephalic, atraumatic, positive pallor. NECK: Supple, no JVD. LUNGS: Bilateral equal air entry. CARDIAC: S1, S2, regular rate and rhythm, positive murmur, no rub. ABDOMEN: Soft, nondistended. EXTREMITIES: Decreased temperature of the left forearm and hand, decreased sensations, severe ecchym osis, dressing of the left subclavian area. No lower extremity edema. LABORATORY DATA: WBC 6.2, hemoglobin 8.6, hematocrit 26.6, platelets 135. Sodium 136, potassium 3.6 , chloride 97, CO2 30, BUN 14, creatinine 1.9, glucose 124, calcium 8.9. ASSESSMENT: 1. Left subclavian arteriovenous graft, postop day #1. 2. Cold left hand, scheduled to go to the OR again today. 3. Severe anemia. 4. Thrombocytopenia. 5. Coronary artery disease, history of coronary artery bypass graft, percutaneous transluminal coron tosin angioplasty and stents. 6. Critical aortic stenosis. 7. End-stage renal disease. PLAN: 1. May require blood transfusion after OR today. 2. Monitor hemodynamics closely. 3. Monitor H and H and platelets. 4. No indication for dialysis at this time. Gwen Matt MD cc: [phone] TT: 08/31/2016 12:26:28 Confirmation # [id number] Dictation # [id number] en
[2016-08-31] MEDS ORDERED: Nitroglycerin 2% Ointment Foilpak UD TOP ONE (12:29)
[2016-08-31] MEDS ORDERED: Flumazenil 0.1 mg/ml Inj (5ml) IVP ONE (12:35)
--- NOTE | 2016-08-31 12:51 | PCM.SURG1 ---
Surgeon's Initial Post Op Note - Surgeon's Notes Surgeon: Kvng Gamemaster: Jaelyn PGY2 Type of Anesthesia: IV Sedation, Local Pre-Operative Diagnosis: Vascular steal L UE Operative Findings: poor distal pulse of L UE Post-Operative Diagnosis: same Operation Performed: L arm distal revascularization and interval ligation w. fasciotomy of L hand Specimen/Specimens Removed: none Estimated Blood Loss: EBL {In ML}: 50 Blood Products Given: N/A Drains Used: No Drains Post-Op Condition: Good Date of Surgery/Procedure: 08/31/16 Time of Surgery/Procedure: 12:51
[2016-08-31] MEDS ORDERED: HYDROmorphone 0.5 mg/0.5 ml ISec IVP PRN (12:53)
[2016-08-31] MEDS ORDERED: Morphine 2 mg/ml ISec IVP PRN (12:53)
[2016-08-31] MEDS ORDERED: Sodium Chloride 0.9% 1,000 ML IV SCH (13:04)
--- NOTE | 2016-08-31 13:10 | RAD ---
PROCEDURE: Fluoroscopy up to 1 hour HISTORY: LEFT ARM A/V GRAFT COMPARISON: TECHNIQUE: Fluoroscopy was provided in the operating room. 1 minutes and 20 seconds of fluoroscopy time were utilized. Fifteen images were submitted FINDINGS: A left-sided venogram was performed by Dr. Calderon IMPRESSION: As above
[2016-08-31] MEDS ORDERED: Sodium Chloride 0.9% 1,000 ML IV STA (14:01)
[2016-08-31 14:19] LABS: ADD MANUAL DIFF? NO
[2016-08-31 14:22] LABS: BASO # 0.02 K/mm3 (0.0-2.0); BASO % 0.5 % (0.0-3.0); EOS % 0.5 % (1.5-5.0); GRAN # 2.59 (1.4-6.5); GRAN % 69.4 % (50.0-68.0); HEMATOCRIT 24.8 % (42.0-52.0); LYMPH # 0.5 (1.2-3.4); LYMPH % 12.8 % (22.0-35.0); MEAN CELL VOLUME 106.9 fL (80.0-105.0); MEAN CORPUSCULAR HEMOGLOBIN 34.1 pg (25.0-35.0); MEAN CORPUSCULAR HGB CONC 31.9 g/dl (31.0-37.0); MONO # 0.6 (0.1-0.6); MONO % 16.8 % (1.0-6.0); PLATELET COUNT 130 10^3/uL (120.0-450.0); RED CELL DISTRIBUTION WIDTH 18.2 % (11.5-14.5); WHITE BLOOD COUNT 3.7 10^3/ul (4.5-11.0)
[2016-08-31 14:30] LABS: ALB/GLOB RATIO 1.1 (1.1-1.8); CALCIUM 8.7 mg/dL (8.4-10.5); POTASSIUM 4.2 mmol/L (3.6-5.0); TOTAL PROTEIN 5.8 g/dL (5.8-8.3)
--- NOTE | 2016-08-31 14:45 | RAD ---
HISTORY: R/O PULMONARY DISEASE COMPARISON: Chest x-ray performed 08/05/16 TECHNIQUE: Chest, one view. FINDINGS: Right-sided dialysis catheter extends the expected location of the cavoatrial junction. Multiple external wires and leads obscure evaluation of the underlying parenchyma. LUNGS: Right lower lobe pleural effusion and/or consolidation. Pulmonary venous congestion. No definite pneumothorax. Please note that chest x-ray has limited sensitivity for the detection of pulmonary masses. CARDIOVASCULAR: Median sternotomy wires. Cardiomegaly. Dense atherosclerotic calcifications of the aorta. OSSEOUS STRUCTURES: Degenerative changes of the spine and shoulders. Acromioclavicular arthropathy. VISUALIZED UPPER ABDOMEN: Unremarkable. OTHER FINDINGS: None. IMPRESSION: Right-sided dialysis catheter extends the expected location of the cavoatrial junction. Right lower lobe pleural effusion and/or consolidation. Pulmonary venous congestion.
--- NOTE | 2016-08-31 14:49 | CARD ---
APPROVED REPORT EKG Measurement Heart [id number] <Conclusion> Normal sinus rhythm Inf Wall [place]-Old. RBBB.
[2016-08-31 15:05] LABS: TROPONIN I 0.27 ng/mL
--- NOTE | 2016-08-31 16:17 | CON ---
DATE: 08/31/2016 HISTORY OF PRESENT ILLNESS: This is an 86-year-old gentleman with history of end-stage renal disease on hemodialysis, and coronary artery disease, status post bypass in the past, who presented with AV fistula revision. Consult for the ICU was requested for overnight observation as patient had multiple cardiopulmonary comorbidities. Of note, patient had low blood pressure at baseline. On presentation, patient is somewhat lethargic after the procedure. He opened eyes on command. No nausea, no vomiting. No diarrhea, no constipation. Blood pressure 62/45. IV fluid is going. No nausea, no vomiting , no diarrhea, no constipation. MEDICATIONS: Flomax, ProAmatine, Lipitor, Plavix, and midodrine. PAST MEDICAL HISTORY: Coronary artery disease, status post coronary bypass and PTCA, hypercholesterolemia. FAMILY HISTORY: Noncontributory. SOCIAL HISTORY: No alcohol or illicit drug abuse. REVIEW OF SYSTEMS: Revealed 12-point organ system, other than mentioned in history of present illness, is negative. ALLERGIES: ADHESIVE TAPE. PHYSICAL EXAMINATION: VITAL SIGNS: Blood pressure 62/45, heart rate 101. The patient is afebrile. Oxygen saturation 100% on nasal cannula 3 L per minute. HEAD AND NECK: Atraumatic. LUNGS: Decreased breath sounds bilaterally. HEART: Regular rate and rhythm. S1, S2 are distant. ABDOMEN: Soft, nontender, nondistended. MUSCULOSKELETAL: 2+ bilateral pedal and ankle edema. NEUROLOGIC: The patient moves all extremities on command. SKIN: Moist. PSYCHIATRIC: The patient is lethargic. LABORATORY DATA: Hemoglobin 7.9 (1 unit of PRBC will be transfused), WBC 3.7, platelet count 130. Sodium 136, potassium 4.2, chloride 100, carbon dioxide 26 , BUN 19, creatinine 2.7 (patient is on hemodialysis). Troponin 0.17 (unclear whether related to end-stage renal disease). EKG showed normal sinus rhythm, right bundle branch block. Chest x-ray showed some bilateral vascular congestion, right more than left. Cannot rule out pleural effusion. ASSESSMENT AND PLAN: This is an 86-year-old gentleman with multiple cardiovascular comorbidities who was admitted to ICU after arteriovenous fistula revision with relative hypotension. The patient received 1 liter of normal saline bolus. His hemoglobin is 7.9 and he will be transfused 1 unit of blood. Will also check patient's lactic acid level. Chest x-ray does not show any pneumothorax and just bilateral congestion, even though patient maintains his gas exchange relatively with low FiO2 requirement. Troponin is slightly elevated; however, most likely related to end-stage renal disease rather than primary cardiac etiology, in any case will keep Hb level closer to 10. As patient has severe LV systolic dysfunction and pulmonary hypertension, will support him with dobutamine, low dose. Will trend, troponin level and lactic acid level. Will continue to target euvolemia, euglycemia, normothermia, and oxygen saturation more than 90%. Will continue with deep vein thrombosis and gastrointestinal prophylaxis. ccm time 40 min Chay Doe MD cc: [id number] TT: 08/31/2016 16:16:35 Confirmation # [id number] Dictation # [id number] judy PHILLIPS
--- NOTE | 2016-08-31 16:21 | OP ---
PROCEDURE DATE: 08/31/2016 PREOPERATIVE DIAGNOSES: End-stage renal disease, status post left arm arteriovenous graft with hybrid graft; steal, left hand, ischemic left hand. POSTOPERATIVE DIAGNOSES: End-stage renal disease, status post left arm arteriovenous graft with hybrid graft; steal, left hand, ischemic left hand. PROCEDURE: DRIL (distal revascularization, interval ligation) procedure on table angiogram, palmar fasciotomy. SURGEON: Maci Calderon MD. ANESTHESIA: Local with IV sedation. PROCEDURE NOTE: The patient was brought to the OR and placed supine on the OR table. After adequate IV sedation had been accomplished, the dressing was removed and the entire chest and left upper extremity were prepped with Betadine and draped out as a sterile field. After local infiltration with 1% Xylocaine, the stitches at the axillary incision were removed and via the incision, the proximal brachial artery was dissected out and looped by using vessel loop. The medial arm incision for the arterial anastomosis of the graft was also opened and extended distally for another inch to expose the brachial artery distal to the graft. A 6 mm ringed [place]-Sebastien was tunneled to connect the proximal brachial artery to the distal brachial artery at the antecubital fossa. After systemic heparinization, the proximal anastomosis was performed with 6-0 Prolene continuous suture. After that was accomplished, the graft was clamped and the distal graft anastomosed to the brachial artery distal to the arterial anastomosis of the AV graft. Also, the brachial artery just distal to the arterial anastomosis was ligated with 2-0 silk. The distal anastomosis was performed using 6-0 Prolene continuous suture. Upon completion of the anastomosis, the clamp on the graft was removed. On table angiogram via the graft showed patent anastomosis with a radial artery going all the way to the hand as well as the interosseous artery. The ulnar artery does not appear to be patent; however, the hand has a complete arch. There was a great deal of spasm in the palmar area, so we elected to do a palmar fasciotomy. An incision was made on the thenar crease. The incision was extended down to the subcutaneous tissue. The palmar fascia was transected. Care was taken not to injure the accessory median nerve. Upon completion of the fasciotomy the skin was closed with 4-0 Monocryl subcuticular suture. Both the axillary and the arm incisions were closed in 2 layers using 2 -0 Monocryl continuous suture and 4-0 Monocryl subcuticular suture for skin. Sterile dressing was applied. The patient was taken to the recovery room in stable condition. Prior to leaving the operating room, he has an audible bruit over the graft and his hand was warm. Maci Calderon MD cc: [phone] TT: 08/31/2016 13:30:01 tn MTDD
--- NOTE | 2016-08-31 17:55 | PN ---
DATE: 08/31/2016 SUBJECTIVE: The patient underwent revision of his fistula surgery that was performed yesterday replaced by [facility] of ischemic left arm changes. The patient is currently in the ICU. He denies any chest pain or a rm pain. He is mildly hypotensive. No reported ventricular arrhythmia. The patient's is at th e bedside. PHYSICAL EXAMINATION: VITAL SIGNS: Blood pressure 80/50, heart rate 93, temperature 97.5, respirations 16. HEENT: Pale conjunctivae. CHEST: Diminished air entry over the bases. HEART: S1, S2 regular. EXTREMITIES: Trace leg edema. LABORATORIES: Today's hemoglobin and hematocrit 7.9 and 24.8. White count 3.7, platelet count is 13 0,000. Today's SMA-7: Sodium 136, potassium 4.2, chloride 100, CO2 of 26, glucose 60, BUN 19, creat inine 2.7, troponin is borderline elevated at 0.27. ASSESSMENT: 1. Status post revision of left subclavian arteriovenous fistula. 2. Improved thrombocytopenia. 3. Anemia. 4. Coronary artery disease status post coronary artery bypass surgery and percutaneous coronary inte rvention to the anastomotic site of the left internal mammary artery to the left anterior descending. 5. Aortic stenosis, possible status post transcatheter aortic valve replacement according to the wif e. 6. Chronic renal insufficiency. 7. Borderline hypertension. RECOMMENDATIONS: The case was discussed with the medical team. The patient will be maintained on Pr oAmatine at 5 mg daily, Lipitor 10 mg once a day. I will resume Plavix 75 mg once a day once cleared by Dr. Calderon from the surgical point of view. May consider dopamine infusion if the patient remains hypertensive. Cristopher Lopez MD cc: [id number] TT: 08/31/2016 17:54:56 Confirmation # [id number] Dictation # [id number] judy
[2016-08-31] MEDS ORDERED: Nitroglycerin 2% Ointment Foilpak UD TOP SCH (18:00)
[2016-08-31] MEDS: DOBUTamine 500mg/250ml D5W 500 MG/250 ML BAG IV PRN (18:05)
[2016-08-31 19:39] LABS: VENOUS BLOOD GAS BASE EXCESS 1.4 mmol/L (0.0-2.0); VENOUS BLOOD PH 7.34 (7.32-7.43)
[2016-08-31 19:41] LABS: MEAN CELL VOLUME 102.6 fL (80.0-105.0); MEAN CORPUSCULAR HEMOGLOBIN 33.3 pg (25.0-35.0); MEAN CORPUSCULAR HGB CONC 32.5 g/dl (31.0-37.0); MEAN PLATELET VOLUME 9.9 fl (7.0-11.0); RED CELL DISTRIBUTION WIDTH 20.4 % (11.5-14.5); WHITE BLOOD COUNT 3.5 10^3/ul (4.5-11.0)
[2016-08-31 23:33] LABS: TROPONIN I 0.47 ng/mL
[2016-09-01 00:22] LABS: VENOUS BLOOD GAS BASE EXCESS 0.3 mmol/L (0.0-2.0); VENOUS BLOOD PH 7.39 (7.32-7.43)
[2016-09-01 05:57] LABS: HEMATOCRIT 28.5 % (42.0-52.0); MEAN CELL VOLUME 101.1 fL (80.0-105.0); MEAN CORPUSCULAR HGB CONC 32.6 g/dl (31.0-37.0); MEAN PLATELET VOLUME 9.6 fl (7.0-11.0); RED CELL DISTRIBUTION WIDTH 20.5 % (11.5-14.5); WHITE BLOOD COUNT 4.4 10^3/ul (4.5-11.0)
[2016-09-01 06:09] LABS: CALCIUM 8.9 mg/dL (8.4-10.5); POTASSIUM 4.2 mmol/L (3.6-5.0)
[2016-09-01 06:38] LABS: VENOUS BLOOD GAS BASE EXCESS -0.2 mmol/L (0.0-2.0); VENOUS BLOOD PH 7.37 (7.32-7.43)
[2016-09-01 06:40] LABS: TROPONIN I 0.74 ng/mL
--- NOTE | 2016-09-01 09:31 | PN ---
DATE: 09/01/2016 SUBJECTIVE: The patient is resting in bed, awake and alert. Family at bedside. He is satting 100% on 2 liters nasal cannula and comfortable with his respiratory status. The patient's blood pressure is stable with systolic of 108. No complaints of increased shortness of breath, cough, wheezing, [address] congestion. The patient is still on dobutamine drip. PHYSICAL EXAMINATION: VITAL SIGNS: His temperature is 98.4, his pulse is 92 and his BP is 105/57, respiratory rate of 25. HEENT: Head is normocephalic. Eyes reactive to light. Ears, nose and throat seemed to be within no rmal limits. NECK: Supple. No JVD, no thyroid enlargement, no lymph nodes. CARDIOVASCULAR: Has an irregular rate and rhythm. Normal S1, S2. LUNGS: Reveal decreased breath sounds at the bases with occasional rhonchi. ABDOMEN: Soft. Decreased bowel sounds. GENITALIA AND RECTAL: Deferred. MUSCULOSKELETAL: No joint deformities. EXTREMITIES: Reveal positive lower extremity edema. NEUROLOGIC: He is awake and alert and moving all extremities. His chest x-ray reveals that he has a right lower lobe consolidation, pulmonary vascular congestion a nd right-sided pleural effusion. LABORATORY DATA: Show a white count of 4.4, hemoglobin of 9.3, hematocrit 28.5 with platelets of 129 . Venous blood gas of pH of 7.37, pCO2 of 44, pO2 of 54. His sodium is 137, potassium 4.2, chloride 99, CO2 of 29 with a BUN of 27, creatinine of 3.3, and a glucose of 107. The patient's troponins ar e 0.74. IMPRESSION: The patient has probable myocardial infarction with increased troponins. The patient cortes s left ventricular systolic dysfunction and requires a dobutamine. He has cardiomyopathy, anemia, ri ght pleural effusion with possible right lower lobe pneumonia. He has a chronic renal insufficiency as well as coronary artery disease and pulmonary hypertension. The patient has a subdural hematoma f rom a fall. PLAN: We will continue with O2 via nasal cannula. Continue with dialysis as per renal. The patient is on dobutamine for cardiac support. He is getting Dilaudid for pain. We will continue with IV fl uids and continue to treat aggressively along with the other consultants and the primary care doctor. Randall Tavarez MD cc: [phone] TT: 09/01/2016 09:30:13 Confirmation # [id number] Dictation # [id number]
--- NOTE | 2016-09-01 09:59 | CP.CCUPN ---
CCU Subjective - Physician Review Events Since Last Encounter (Free Text): 09/01/16 09:56 4 plt and 1 u pRBC given overnight. Hb 7.9 --> 9.3. Plt maintained at 130. pt bp at mid 80s Per Dr. Matt, stop NS@50. Do not remove water during dialysis today. CCU Objective - Vital Signs / Intake & Output Vital Signs (Last 4 hours): Vital Signs Temp Pulse Resp BP Pulse Ox 09/01/16 08:00 98.4 F 92 H 22 105/57 L 100 09/01/16 07:53 96 H 09/01/16 07:40 97 H 26 H 100 09/01/16 07:30 93 H 17 100 09/01/16 07:20 96 H 23 100 09/01/16 07:10 97 H 24 100 09/01/16 07:00 96 H 18 84/51 L 100 09/01/16 06:50 96 H 21 100 09/01/16 06:40 95 H 21 100 09/01/16 06:30 99 H 18 93 L 09/01/16 06:20 100 H 25 H 98 09/01/16 06:18 101 H 35 H 09/01/16 06:10 99 H 20 95 09/01/16 06:00 95 H 16 78/50 L 93 L Intake and Output (Last 8hrs): Intake & Output 08/31/16 09/01/16 09/01/16 22:59 06:59 14:59 Intake Total 1055 594 Output Total 0 Balance 1055 594 Weight 147 lb 3 oz Intake: IV 594 Right Hand 594 Oral 720 Blood Product 325 Red Blood Cells Cpd As1 325 Lr Unit [id number] Other 10 Red Blood Cells Cpd As1 10 Lr Unit [id number] Output: Urine 0 Urine, Voided 0 Other: Voiding Method Toilet Toilet # Bowel Movements 0 - Medications Active Medications: Active Medications Generic Name Dose Route Start Last Admin Trade Name Freq PRN Reason Stop Dose Admin Atorvastatin Calcium 10 mg 08/30/16 18:45 08/31/16 17:23 Lipitor PO 10 mg DIN FABRIZIO Administration Hydromorphone HCl 0.5 mg 08/31/16 12:53 Dilaudid IVP Q4H PRN Pain, moderate (4-7) Sodium Chloride 1,000 mls @ 50 mls/hr 08/31/16 13:04 08/31/16 20:30 Sodium Chloride 0.9% IV 50 mls/hr .Q20H FABRIZIO Administration Dobutamine HCl/Dextrose 500 mg in 250 mls @ 4.763 mls/hr 08/31/16 15:30 08/31 18:05 Dobutamine/Dextrose 5% 500mg/250ml IV 4.763 mls/hr .Q24H PRN Administration TITRATE PER PROTOCOL Protocol 2.5 MCG/KG/MIN Metoclopramide HCl 10 mg 08/31/16 12:53 Reglan IV ONCE PRN Nausea/Vomiting Midodrine 5 mg 08/31/16 10:00 09/01/16 09:17 Proamatine PO 5 mg DAILY FABRIZIO Administration Nitroglycerin 1 ea 08/31/16 18:00 08/31/16 17:38 Nitro-Bid 2% Oint TOP 1 ea Q6 FABRIZIO Administration Ondansetron HCl 4 mg 08/31/16 13:05 Zofran Inj IVP Q4H PRN Nausea/Vomiting - Patient Studies Lab Studies: Lab Studies 09/01/16 09/01/16 09/01/16 Range/Units 06:30 05:30 05:30 WBC 4.4 L D (4.5-11.0) 10^3/ul RBC 2.82 L (3.5-6.1) 10^6/uL Hgb 9.3 L (14.0-18.0) gm/dL Hct 28.5 L (42.0-52.0) % MCV 101.1 (80.0-105.0) fL MCH 33.0 (25.0-35.0) pg MCHC 32.6 (31.0-37.0) g/dl RDW 20.5 H (11.5-14.5) % Plt Count 129 (120.0-450.0) 10^3/uL MPV 9.6 (7.0-11.0) fl Gran % (50.0-68.0) % Lymph % (Auto) (22.0-35.0) % Lea % (Auto) (1.0-6.0) % Eos % (Auto) (1.5-5.0) % Baso % (Auto) (0.0-3.0) % Gran # (1.4-6.5) Lymph # (1.2-3.4) Lea # (0.1-0.6) Eos # (0.0-0.7) Baso # (0.0-2.0) K/mm3 pO2 54 (30-55) mm/Hg VBG pH 7.37 (7.32-7.43) VBG pCO2 44.0 (40-60) VBG HCO3 25.4 (21-28) mmol/l VBG Total CO2 (22-28) mmol.L VBG O2 Sat (Calc) 93.3 H (40-65) % VBG Base Excess -0.2 L (0.0-2.0) mmol/L VBG Potassium (3.6-5.2) mmol/L Sodium 137 (132-148) mmol/L Chloride 99 (98-107) mmol/L Glucose (75-110) mg/dl Lactate (0.7-2.1) mmol/L FiO2 % Potassium 4.2 (3.6-5.0) mmol/L Carbon Dioxide 29 (21-33) mmol/L Anion Gap 13 (10-20) BUN 27 H (7-21) mg/dL Creatinine 3.3 H (0.5-1.4) mg/dL Est GFR ( Amer) 22 Est GFR (Non-Af Amer) 18 POC Glucose (mg/dL) (65-110) mg/dL Random Glucose 107 (70-110) mg/dL Lactic Acid (0.7-2.1) mmol/L Calcium 8.9 (8.4-10.5) mg/dL Total Bilirubin (0.2-1.3) mg/dL AST (15-59) U/L ALT (7-56) U/L Alkaline Phosphatase (38-133) U/L Total Creatine Kinase (35-230) U/L Troponin I 0.74 H* D ng/mL Total Protein (5.8-8.3) g/dL Albumin (3.0-4.8) g/dL Globulin gm/dL Albumin/Globulin Ratio (1.1-1.8) Venous Blood Potassium (3.6-5.2) mmol/L Blood Type Antibody Screen Crossmatch BBK History Checked 04/08/31/16 08/31/16 Range/Units 22:20 20:34 19:25 WBC 3.5 L (4.5-11.0) 10^3/ul RBC 2.73 L (3.5-6.1) 10^6/uL Hgb 9.1 L (14.0-18.0) gm/dL Hct 28.0 L (42.0-52.0) % MCV 102.6 (80.0-105.0) fL MCH 33.3 (25.0-35.0) pg MCHC 32.5 (31.0-37.0) g/dl RDW 20.4 H (11.5-14.5) % Plt Count 130 (120.0-450.0) 10^3/uL MPV 9.9 (7.0-11.0) fl Gran % (50.0-68.0) % Lymph % (Auto) (22.0-35.0) % Lea % (Auto) (1.0-6.0) % Eos % (Auto) (1.5-5.0) % Baso % (Auto) (0.0-3.0) % Gran # (1.4-6.5) Lymph # (1.2-3.4) Lea # (0.1-0.6) Eos # (0.0-0.7) Baso # (0.0-2.0) K/mm3 pO2 (30-55) mm/Hg VBG pH (7.32-7.43) VBG pCO2 (40-60) VBG HCO3 (21-28) mmol/l VBG Total CO2 (22-28) mmol.L VBG O2 Sat (Calc) (40-65) % VBG Base Excess (0.0-2.0) mmol/L VBG Potassium (3.6-5.2) mmol/L Sodium (132-148) mmol/L Chloride (98-107) mmol/L Glucose (75-110) mg/dl Lactate (0.7-2.1) mmol/L FiO2 % Potassium (3.6-5.0) mmol/L Carbon Dioxide (21-33) mmol/L Anion Gap (10-20) BUN (7-21) mg/dL Creatinine (0.5-1.4) mg/dL Est GFR ( Amer) Est GFR (Non-Af Amer) POC Glucose (mg/dL) 177 H (65-110) mg/dL Random Glucose (70-110) mg/dL Lactic Acid (0.7-2.1) mmol/L Calcium (8.4-10.5) mg/dL Total Bilirubin (0.2-1.3) mg/dL AST (15-59) U/L ALT (7-56) U/L Alkaline Phosphatase (38-133) U/L Total Creatine Kinase 76 (35-230) U/L Troponin I 0.47 H* D ng/mL Total Protein (5.8-8.3) g/dL Albumin (3.0-4.8) g/dL Globulin gm/dL Albumin/Globulin Ratio (1.1-1.8) Venous Blood Potassium (3.6-5.2) mmol/L Blood Type Antibody Screen Crossmatch BBK History Checked 08/31/16 08/31/16 08/31/16 Range/Units 19:25 19:25 14:15 WBC 3.7 L D (4.5-11.0) 10^3/ul RBC 2.32 L (3.5-6.1) 10^6/uL Hgb 7.9 L (14.0-18.0) gm/dL Hct 24.8 L (42.0-52.0) % MCV 106.9 H (80.0-105.0) fL MCH 34.1 (25.0-35.0) pg MCHC 31.9 (31.0-37.0) g/dl RDW 18.2 H (11.5-14.5) % Plt Count 130 (120.0-450.0) 10^3/uL MPV 10.0 (7.0-11.0) fl Gran % 69.4 H (50.0-68.0) % Lymph % (Auto) 12.8 L (22.0-35.0) % Lea % (Auto) 16.8 H (1.0-6.0) % Eos % (Auto) 0.5 L (1.5-5.0) % Baso % (Auto) 0.5 (0.0-3.0) % Gran # 2.59 (1.4-6.5) Lymph # 0.5 L (1.2-3.4) Lea # 0.6 (0.1-0.6) Eos # 0.0 (0.0-0.7) Baso # 0.02 (0.0-2.0) K/mm3 pO2 44 (30-55) mm/Hg VBG pH 7.34 (7.32-7.43) VBG pCO2 52.0 (40-60) VBG HCO3 28.1 H (21-28) mmol/l VBG Total CO2 29.7 H (22-28) mmol.L VBG O2 Sat (Calc) 83.1 H (40-65) % VBG Base Excess 1.4 (0.0-2.0) mmol/L VBG Potassium 4.2 (3.6-5.2) mmol/L Sodium 138.0 (132-148) mmol/L Chloride 103.0 (98-107) mmol/L Glucose 177 H (75-110) mg/dl Lactate 2.4 H (0.7-2.1) mmol/L FiO2 21.0 % Potassium (3.6-5.0) mmol/L Carbon Dioxide (21-33) mmol/L Anion Gap (10-20) BUN (7-21) mg/dL Creatinine (0.5-1.4) mg/dL Est GFR ( Amer) Est GFR (Non-Af Amer) POC Glucose (mg/dL) (65-110) mg/dL Random Glucose (70-110) mg/dL Lactic Acid 2.4 H (0.7-2.1) mmol/L Calcium (8.4-10.5) mg/dL Total Bilirubin (0.2-1.3) mg/dL AST (15-59) U/L ALT (7-56) U/L Alkaline Phosphatase (38-133) U/L Total Creatine Kinase (35-230) U/L Troponin I ng/mL Total Protein (5.8-8.3) g/dL Albumin (3.0-4.8) g/dL Globulin gm/dL Albumin/Globulin Ratio (1.1-1.8) Venous Blood Potassium 4.2 (3.6-5.2) mmol/L Blood Type Antibody Screen Crossmatch BBK History Checked 04/28/17 04/28/17 04/27/17 Range/Units 14:15 00:10 11:03 WBC (4.5-11.0) 10^3/ul RBC (3.5-6.1) 10^6/uL Hgb (14.0-18.0) gm/dL Hct (42.0-52.0) % MCV (80.0-105.0) fL MCH (25.0-35.0) pg MCHC (31.0-37.0) g/dl RDW (11.5-14.5) % Plt Count (120.0-450.0) 10^3/uL MPV (7.0-11.0) fl Gran % (50.0-68.0) % Lymph % (Auto) (22.0-35.0) % Lea % (Auto) (1.0-6.0) % Eos % (Auto) (1.5-5.0) % Baso % (Auto) (0.0-3.0) % Gran # (1.4-6.5) Lymph # (1.2-3.4) Lea # (0.1-0.6) Eos # (0.0-0.7) Baso # (0.0-2.0) K/mm3 pO2 43 (30-55) mm/Hg VBG pH 7.39 (7.32-7.43) VBG pCO2 42.0 (40-60) VBG HCO3 25.4 (21-28) mmol/l VBG Total CO2 26.7 (22-28) mmol.L VBG O2 Sat (Calc) 86.7 H (40-65) % VBG Base Excess 0.3 (0.0-2.0) mmol/L VBG Potassium 3.7 (3.6-5.2) mmol/L Sodium 136 135.0 (132-148) mmol/L Chloride 100 109.0 H (98-107) mmol/L Glucose 163 H (75-110) mg/dl Lactate 1.6 (0.7-2.1) mmol/L FiO2 21.0 % Potassium 4.2 (3.6-5.0) mmol/L Carbon Dioxide 26 (21-33) mmol/L Anion Gap 14 (10-20) BUN 19 (7-21) mg/dL Creatinine 2.7 H (0.5-1.4) mg/dL Est GFR ( Amer) 27 Est GFR (Non-Af Amer) 22 POC Glucose (mg/dL) (65-110) mg/dL Random Glucose 68 L (70-110) mg/dL Lactic Acid (0.7-2.1) mmol/L Calcium 8.7 (8.4-10.5) mg/dL Total Bilirubin 1.0 (0.2-1.3) mg/dL AST 18 (15-59) U/L ALT 26 (7-56) U/L Alkaline Phosphatase 75 (38-133) U/L Total Creatine Kinase (35-230) U/L Troponin I 0.27 H* D ng/mL Total Protein 5.8 (5.8-8.3) g/dL Albumin 3.0 (3.0-4.8) g/dL Globulin 2.7 gm/dL Albumin/Globulin Ratio 1.1 (1.1-1.8) Venous Blood Potassium 3.7 (3.6-5.2) mmol/L Blood Type B POSITIVE Antibody Screen Negative Crossmatch See Detail BBK History Checked Patient has bt Laboratory Results - last 24 hr 08/30/16 08/31/16 08/31/16 11:03 00:10 14:15 WBC RBC Hgb Hct MCV MCH MCHC RDW Plt Count MPV Gran % Lymph % (Auto) Lea % (Auto) Eos % (Auto) Baso % (Auto) Gran # Lymph # Lea # Eos # Baso # pO2 43 VBG pH 7.39 VBG pCO2 42.0 VBG HCO3 25.4 VBG Total CO2 26.7 VBG O2 Sat (Calc) 86.7 H VBG Base Excess 0.3 VBG Potassium 3.7 Sodium 135.0 136 Chloride 109.0 H 100 Glucose 163 H Lactate 1.6 FiO2 21.0 Potassium 4.2 Carbon Dioxide 26 Anion Gap 14 BUN 19 Creatinine 2.7 H Est GFR ( Amer) 27 Est GFR (Non-Af Amer) 22 POC Glucose (mg/dL) Random Glucose 68 L Lactic Acid Calcium 8.7 Total Bilirubin 1.0 AST 18 ALT 26 Alkaline Phosphatase 75 Total Creatine Kinase Troponin I 0.27 H* D Total Protein 5.8 Albumin 3.0 Globulin 2.7 Albumin/Globulin Ratio 1.1 Venous Blood Potassium 3.7 Blood Type B POSITIVE Antibody Screen Negative Crossmatch See Detail BBK History Checked Patient has bt 08/31/16 08/31/16 08/31/16 14:15 19:25 19:25 WBC 3.7 L D RBC 2.32 L Hgb 7.9 L Hct 24.8 L MCV 106.9 H MCH 34.1 MCHC 31.9 RDW 18.2 H Plt Count 130 MPV 10.0 Gran % 69.4 H Lymph % (Auto) 12.8 L Lea % (Auto) 16.8 H Eos % (Auto) 0.5 L Baso % (Auto) 0.5 Gran # 2.59 Lymph # 0.5 L Lea # 0.6 Eos # 0.0 Baso # 0.02 pO2 44 VBG pH 7.34 VBG pCO2 52.0 VBG HCO3 28.1 H VBG Total CO2 29.7 H VBG O2 Sat (Calc) 83.1 H VBG Base Excess 1.4 VBG Potassium 4.2 Sodium 138.0 Chloride 103.0 Glucose 177 H Lactate 2.4 H FiO2 21.0 Potassium Carbon Dioxide Anion Gap BUN Creatinine Est GFR ( Amer) Est GFR (Non-Af Amer) POC Glucose (mg/dL) Random Glucose Lactic Acid 2.4 H Calcium Total Bilirubin AST ALT Alkaline Phosphatase Total Creatine Kinase Troponin I Total Protein Albumin Globulin Albumin/Globulin Ratio Venous Blood Potassium 4.2 Blood Type Antibody Screen Crossmatch BBK History Checked 08/31/16 08/31/16 08/31/16 19:25 20:34 22:20 WBC 3.5 L RBC 2.73 L Hgb 9.1 L Hct 28.0 L MCV 102.6 MCH 33.3 MCHC 32.5 RDW 20.4 H Plt Count 130 MPV 9.9 Gran % Lymph % (Auto) Lea % (Auto) Eos % (Auto) Baso % (Auto) Gran # Lymph # Lea # Eos # Baso # pO2 VBG pH VBG pCO2 VBG HCO3 VBG Total CO2 VBG O2 Sat (Calc) VBG Base Excess VBG Potassium Sodium Chloride Glucose Lactate FiO2 Potassium Carbon Dioxide Anion Gap BUN Creatinine Est GFR ( Amer) Est GFR (Non-Af Amer) POC Glucose (mg/dL) 177 H Random Glucose Lactic Acid Calcium Total Bilirubin AST ALT Alkaline Phosphatase Total Creatine Kinase 76 Troponin I 0.47 H* D Total Protein Albumin Globulin Albumin/Globulin Ratio Venous Blood Potassium Blood Type Antibody Screen Crossmatch BBK History Checked 09/01/16 09/01/16 09/01/16 05:30 05:30 06:30 WBC 4.4 L D RBC 2.82 L Hgb 9.3 L Hct 28.5 L MCV 101.1 MCH 33.0 MCHC 32.6 RDW 20.5 H Plt Count 129 MPV 9.6 Gran % Lymph % (Auto) Lea % (Auto) Eos % (Auto) Baso % (Auto) Gran # Lymph # Lea # Eos # Baso # pO2 54 VBG pH 7.37 VBG pCO2 44.0 VBG HCO3 25.4 VBG Total CO2 VBG O2 Sat (Calc) 93.3 H VBG Base Excess -0.2 L VBG Potassium Sodium 137 Chloride 99 Glucose Lactate FiO2 Potassium 4.2 Carbon Dioxide 29 Anion Gap 13 BUN 27 H Creatinine 3.3 H Est GFR ( Amer) 22 Est GFR (Non-Af Amer) 18 POC Glucose (mg/dL) Random Glucose 107 Lactic Acid Calcium 8.9 Total Bilirubin AST ALT Alkaline Phosphatase Total Creatine Kinase Troponin I 0.74 H* D Total Protein Albumin Globulin Albumin/Globulin Ratio Venous Blood Potassium Blood Type Antibody Screen Crossmatch BBK History Checked EKG/Cardiology Studies: Cardiology / EKG Studies 08/31/16 13:47 ELECTROCARDIOGRAM Stat Comment: Reason For Exam: post ptca PRE OP:: N Does Patient Have a Pacemaker?: No Fingerstick Blood Sugar Results: 131 Critical Care Progress Note - Nutrition Nutrition: Nutrition Category Date Time Status Renal Diet [DIET] Diets 08/31/16 Lunch Ordered
--- NOTE | 2016-09-01 12:39 | PN ---
DATE: 09/01/2016 SUBJECTIVE: The patient is seen lying in bed in the ICU. He is awake, he is alert. is at beds aime. He is receiving dialysis. The patient was transferred to the ICU yesterday after he was taken to the OR for the second time because of a feeble pulse and cold left hand and left forearm. He had distal revascularization, interval ligation because of left hand steal. The patient was found to be hypotensive, even preoperatively. His pressure was 84/55. Postoperative ly, the pressure was in the 70s and hence patient was transferred to the ICU. Overnight, patient has received 1 unit of PRBC. He has received 4 units of platelets. His hemoglobin this morning is 9.3. His platelets are 129. The patient has also been receiving IV fluids. He was on normal saline at 50 mL an hour since 1:00 in the afternoon yesterday. He is also receiving dobutamine at 2.5 mcg per kilogram per minute. PHYSICAL EXAMINATION: GENERAL: The patient is lying in bed. He appears to be in mild respiratory distress. VITAL SIGNS: Blood pressure is 86/49, heart rate is 95, respiratory rate is 18-24, temperature is 98 .4. HEENT: Normocephalic, atraumatic, positive pallor. NECK: Supple, no JVD. LUNGS: Bilateral equal air entry, bilateral basal rales, bilateral rhonchi. CARDIAC: S1, S2, regular rate and rhythm, no murmur, no rub. ABDOMEN: Soft, nondistended, nontender, bowel sounds present. EXTREMITIES: Left hand and left forearm appear much warmer now. There is sensation. There is exten sive ecchymosis. Also, the left subclavian graft has a good thrill and bruit. The patient does have 2+ pitting edema of the lower extremities. INTAKE AND OUTPUT: 1649/0. LABORATORY DATA: WBC 4.4, hemoglobin 9.3, hematocrit 28.5, platelets 129. Sodium 137, potassium 4.2 , chloride 99, CO2 29, BUN 27, creatinine 3.3, glucose 107, calcium 8.9. Troponin 0.74. CURRENT MEDICATIONS: Dilaudid, dobutamine, Lipitor, nitroglycerin, ProAmatine, Reglan, normal saline at 50, Zofran. ASSESSMENT: 1. Status post DRIL procedure, postop day #1 with good result, left hand and forearm are warm. 2. Chronic anemia, hemoglobin remains stable. 3. Thrombocytopenia, platelet count is acceptable at this point. 4. Coronary artery disease, cardiomyopathy, percutaneous transluminal coronary angioplasty and stent s, coronary artery bypass graft. 5. Critical aortic stenosis. The patient is awaiting a transcatheter aortic valve replacement. 6. End-stage renal disease. 7. Volume overload. PLAN: 1. Discontinue IV fluids right away. 2. Dialysis today with no ultrafiltration. 3. Use AVG if okay with surgery. 4. Monitor H and H closely. 5. Monitor platelet count. 6. Continue to monitor in the ICU. 7. Discussed with ICU resident multiple times, discussed with ICU staff, discussed with dialysis sta ff. More than 35 minutes were spent in the care of this critically ill patient. Gwen Matt MD cc: [phone] TT: 09/01/2016 12:39:05 Confirmation # [id number] Dictation # [id number] [email or web address]
--- NOTE | 2016-09-01 13:38 | PN ---
DATE: 09/01/2016 The patient is currently undergoing hemodialysis. He denies any left hand pain. He denies any chest pain or dizziness. Systolic blood pressure in 80s. PHYSICAL EXAMINATION: MOST RECENT VITAL SIGNS: BP 106/42, heart rate 91, temperature 98. HEENT: Pale conjunctivae. CHEST: Diminished breath sounds over the bases. HEART: S1, S2 regular. EXTREMITIES: Warm left hand and arm and no pallor and adequate radial pulse. LABORATORIES: Hemoglobin and hematocrit 9.3 and 28.5, white count 4.4, platelet count 129,000. Toda y's BUN and creatinine are 27 and 3.3. Troponin is borderline elevated at 0.74. ASSESSMENT: 1. Status post revision of left subclavian fistula following acute ischemic changes to the left uppe r extremity. 2. Borderline hypertension. 3. Coronary artery disease status post coronary stenting in May of this year. 4. End-stage renal disease on hemodialysis. 5. Aortic stenosis, status post TAVR according to the . RECOMMENDATIONS: Continue current low dose Dobutrex infusion. Continue Lipitor 10 mg once a day, Pr oAmatine at 5 mg once a day. Start Plavix 75 mg once a day and aspirin 81 mg once a day. Cristopher Lopez MD cc: [phone] TT: 09/01/2016 13:37:20 Confirmation # [id number] Dictation # [id number]
--- NOTE | 2016-09-01 15:36 | CP.PCM.PN ---
Subjective - Date & Time of Evaluation Date of Evaluation: 09/01/16 Time of Evaluation: 15:31 - Subjective Subjective: Surgery: Dr. Calderon Pt seen and examined. Resting comfortably in bed. No complaints of pain. Sensation and motor fxn to L hand has returned. Objective - Vital Signs/Intake and Output Vital Signs (last 24 hours): Temp Pulse Resp BP Pulse Ox 98 F 103 H 20 78/34 L 100 09/01/16 12:00 09/01/16 14:20 09/01/16 14:20 09/01/16 14:00 09/01/16 14:20 Intake and Output: 09/01/16 09/01/16 06:59 18:59 Intake Total 594 Output Total 0 Balance 594 - Medications Medications: Current Medications Aspirin (Aspirin Chewable) 81 mg PO DAILY [facility] Last Admin: 09/01/16 14:24 Dose: 81 mg Atorvastatin Calcium (Lipitor) 10 mg PO DIN [facility] Last Admin: 08/31/16 17:23 Dose: 10 mg Clopidogrel Bisulfate (Plavix) 75 mg PO DAILY [facility] Last Admin: 09/01/16 14:24 Dose: 75 mg Hydromorphone HCl (Dilaudid) 0.5 mg IVP Q4H PRN PRN Reason: Pain, moderate (4-7) Dobutamine HCl/Dextrose (Dobutamine/Dextrose 5% 500mg/250ml) 500 mg in 250 mls @ 4.763 mls/hr IV .Q24H PRN; Protocol; 2.5 MCG/KG/MIN PRN Reason: TITRATE PER PROTOCOL Last Admin: 08/31/16 18:05 Dose: 4.763 mls/hr Metoclopramide HCl (Reglan) 10 mg IV ONCE PRN PRN Reason: Nausea/Vomiting Midodrine (Proamatine) 5 mg PO DAILY [facility] Last Admin: 09/01/16 09:17 Dose: 5 mg Nitroglycerin (Nitro-Bid 2% Oint) 1 ea TOP Q6 [facility] Last Admin: 08/31/16 17:38 Dose: 1 ea Ondansetron HCl (Zofran Inj) 4 mg IVP Q4H PRN PRN Reason: Nausea/Vomiting - Labs Labs: 09/01/16 05:30 09/01/16 05:30 - Constitutional Appears: Non-toxic, No Acute Distress - Head Exam Head Exam: ATRAUMATIC, NORMOCEPHALIC - Eye Exam Eye Exam: EOMI - ENT Exam ENT Exam: Mucous Membranes Moist - Neck Exam Neck Exam: Full ROM - Respiratory Exam Respiratory Exam: NORMAL BREATHING PATTERN. absent: Accessory Muscle Use, Respiratory Distress - GI/Abdominal Exam GI & Abdominal Exam: Soft. absent: Tenderness - Extremities Exam Additional comments: L UE, dressings in place, C/D/I, sensation and motor fxn intact, distal pulse palpable, hand warm to touch - Neurological Exam Neurological Exam: Alert, Awake, Oriented x3 Assessment and Plan - Assessment and Plan (Free Text) Assessment: 86M w. ESRD s/p brachio-subcalvian hybrid AVF graft POD#2, complicated by vascular steal, taken back to OR for DRIL procedure and fasciotomy of L hand, POD#1 -c/w neurovascular checks -Ok to cannulate graft -from surgical standpoint, ok to resume ASA and plavix -will continue to follow -d/w Dr. Kvng Christy PGY2
[2016-09-02 06:29] LABS: HEMATOCRIT 30.6 % (42.0-52.0); MEAN CELL VOLUME 101.7 fL (80.0-105.0); MEAN CORPUSCULAR HEMOGLOBIN 32.9 pg (25.0-35.0); MEAN CORPUSCULAR HGB CONC 32.4 g/dl (31.0-37.0); MEAN PLATELET VOLUME 9.5 fl (7.0-11.0); PLATELET COUNT 103 10^3/uL (120.0-450.0); RED CELL DISTRIBUTION WIDTH 19.8 % (11.5-14.5); WHITE BLOOD COUNT 5.1 10^3/ul (4.5-11.0)
[2016-09-02 06:34] LABS: ADD MANUAL DIFF? YES
[2016-09-02 06:45] LABS: ALB/GLOB RATIO 1.1 (1.1-1.8); BILIRUBIN,TOTAL 1.2 mg/dL (0.2-1.3); CALCIUM 9.1 mg/dL (8.4-10.5); MAGNESIUM 2.1 mg/dL (1.7-2.2); PHOSPHOROUS 3.5 mg/dL (2.5-4.5); TOTAL PROTEIN 6.1 g/dL (5.8-8.3)
[2016-09-02 06:58] LABS: POTASSIUM 3.9 mmol/L (3.6-5.0)
[2016-09-02 07:08] LABS: TROPONIN I 0.81 ng/mL
[2016-09-02 07:36] LABS: EOSINOPHIL 5 % (0.0-3.0); NEUTROPHIL 79 % (50.0-70.0)
--- NOTE | 2016-09-02 08:29 | CP.PCM.PN ---
Subjective - Date & Time of Evaluation Date of Evaluation: 09/02/16 Time of Evaluation: 08:26 - Subjective Subjective: Surgery: Dr. Calderon Pt seen and examined. Resting comfortably in bed. States hand feels much better. Pain controlled. Received dialysis through graft yesterday w. out issue. Objective - Vital Signs/Intake and Output Vital Signs (last 24 hours): Temp Pulse Resp BP Pulse Ox 98.5 F 95 H 22 83/59 L 95 09/02/16 03:53 09/02/16 07:00 09/02/16 06:50 09/02/16 06:00 09/02/16 06:50 Intake and Output: 09/02/16 09/02/16 06:59 18:59 Intake Total 109 Output Total 0 Balance 109 - Medications Medications: Current Medications Aspirin (Aspirin Chewable) 81 mg PO DAILY [facility] Last Admin: 09/01/16 14:24 Dose: 81 mg Atorvastatin Calcium (Lipitor) 10 mg PO DIN [facility] Last Admin: 09/01/16 16:23 Dose: 10 mg Clopidogrel Bisulfate (Plavix) 75 mg PO DAILY [facility] Last Admin: 09/01/16 14:24 Dose: 75 mg Hydromorphone HCl (Dilaudid) 0.5 mg IVP Q4H PRN PRN Reason: Pain, moderate (4-7) Dobutamine HCl/Dextrose (Dobutamine/Dextrose 5% 500mg/250ml) 500 mg in 250 mls @ 4.763 mls/hr IV .Q24H PRN; Protocol; 2.5 MCG/KG/MIN PRN Reason: TITRATE PER PROTOCOL Last Admin: 08/31/16 18:05 Dose: 4.763 mls/hr Metoclopramide HCl (Reglan) 10 mg IV ONCE PRN PRN Reason: Nausea/Vomiting Midodrine (Proamatine) 5 mg PO DAILY [facility] Last Admin: 09/01/16 09:17 Dose: 5 mg Nitroglycerin (Nitro-Bid 2% Oint) 1 ea TOP Q6 [facility] Last Admin: 08/31/16 17:38 Dose: 1 ea Ondansetron HCl (Zofran Inj) 4 mg IVP Q4H PRN PRN Reason: Nausea/Vomiting - Labs Labs: 09/02/16 06:15 09/02/16 06:15 - Constitutional Appears: Non-toxic, No Acute Distress - Head Exam Head Exam: ATRAUMATIC, NORMOCEPHALIC - Eye Exam Eye Exam: EOMI - ENT Exam ENT Exam: Mucous Membranes Moist - Neck Exam Neck Exam: Full ROM - Respiratory Exam Respiratory Exam: NORMAL BREATHING PATTERN. absent: Accessory Muscle Use, Respiratory Distress - GI/Abdominal Exam GI & Abdominal Exam: Soft. absent: Distended, Firm, Guarding, Rigid, Tenderness - Extremities Exam Additional comments: L UE, sensation and motor fxn intact, distal pulse palpable, dressing in place, C/D/I - Neurological Exam Neurological Exam: Alert, Awake, Oriented x3 Assessment and Plan - Assessment and Plan (Free Text) Assessment: 86M w. ESRD s/p brachio-subcalvian hybrid AVF graft POD#2, complicated by vascular steal, taken back to OR for DRIL procedure and fasciotomy of L hand, POD#2 -pt doing well -c/w neurovascular checks -Pt clear for downgrade from ICU from surgical standpoint, will let cardiology make final decision -PT and OOB -d/w attending Jaelyn PGY2
[2016-09-02] MEDS: DOBUTamine 500mg/250ml D5W 500 MG/250 ML BAG IV PRN (09:08)
--- NOTE | 2016-09-02 09:37 | PN ---
DATE: 09/02/2016 ELECTRIC CELL TENDER NOTE SUBJECTIVE: The patient is resting in bed, O2 via nasal cannula. No respiratory distress at this ti me. He continues to have his usual blood pressure reading, which is systolic about 85-90. The patie nt has no complaints of coughing or chest pain. No increased congestion. No fever or chills. No na usea or vomiting. No abdominal pain. PHYSICAL EXAMINATION: Note: VITAL SIGNS: Temperature is 98.5. His pulse is 95. Respirations are 16, and his BP is 88/47. The patient is still on dobutamine and IV fluids, and is resting comfortably. HEENT: Head is atraumatic, normocephalic. Eyes are reactive to light. Ears, nose, and throat seeme d to be within normal limits. NECK: Supple. No JVD, no thyroid enlargement, no lymph nodes. HEART: Regular rate and rhythm. Normal S1, S2. LUNGS: Reveal decreased breath sounds at the bases and occasional rhonchi. ABDOMEN: Soft. Decreased bowel sounds. GENITALIA AND RECTAL: Deferred. MUSCULOSKELETAL: No joint deformities. EXTREMITIES: Reveal positive lower extremity edema. NEUROLOGIC: He seems to be grossly intact. LABORATORY DATA: As far as laboratories are concerned, his white count is 5.1. Hemoglobin is 9.9, h ematocrit 30.6 with platelets of 103,000. His sodium is 135, potassium 3.9, chloride 95, CO2 of 34 w ith a BUN of 27, creatinine of 3.3, and a glucose of 101. The patient's troponins continue to increa se. It is 0.81. IMPRESSION: The patient has myocardial infarction with increased troponins, has left ventricular sys tolic dysfunction as well. Note: The patient is on dobutamine. He is noted to have cardiomyopathy, anemia, right pleural effusion with possible right lower lobe pneumonia. He also has chronic renal insufficiency with coronary artery disease and pulmonary hypertension. There is a history of a subdu ral hematoma from a fall. PLAN: We will continue to administer O2 via nasal cannula, and the patient will get dialysis, as per renal. He is on dobutamine as well as Dilaudid for pain, and we will continue to support with aggre ssive pulmonary toilet. The patient will continue with gentle IV fluids, and we will follow closely and treat aggressively along with the other consultants and the primary care doctor. Randall Tavarez MD cc: [id number] TT: 09/02/2016 09:36:16 Confirmation # [id number] Dictation # [id number] jn
--- NOTE | 2016-09-02 13:28 | PN ---
DATE: 09/02/2016 SUBJECTIVE: The patient is seen in the ICU. He is groggy. He is sitting in the chair. He does not appear to be in any kind of distress. He denies any pain. He denies any shortness of breath. PHYSICAL EXAMINATION: GENERAL: Elderly male, sitting in chair in the ICU. He remains on dobutamine drip at 2.5 mcg per ki logram per minute. VITAL SIGNS: Blood pressure 88/48, heart rate 94, respiratory rate 20, temperature 97.7. HEENT: Normocephalic, atraumatic, positive pallor. NECK: Supple, no JVD. LUNGS: Bilateral equal air entry, bilateral rhonchi, basal rales. CARDIAC: S1, S2, regular rate and rhythm, positive murmur, no rub. ABDOMEN: Soft, nondistended, nontender, bowel sounds present. EXTREMITIES: 1+ pitting edema of the lower extremities, no edema of the upper extremities. INTAKE AND OUTPUT: 947/100. LABORATORY DATA: WBC 5.1, hemoglobin 9.9, hematocrit 30.6, platelets 103. Sodium 135, potassium 3.9 , chloride 95, CO2 34, BUN 27, creatinine 3.3, glucose 101, calcium 9.1, phosphorus 3.5, magnesium 2. 1. Troponin 0.81. AST 18, ALT 23, albumin 3.1. CURRENT MEDICATIONS: Aspirin 81 mg, Dilaudid p.r.n., dobutamine 2.5 mcg per kilogram per minute, Lip itor 10, Plavix 75, ProAmatine 5, Reglan, Zofran. ASSESSMENT AND PLAN: An 86-year-old male with history of coronary artery disease, coronary artery by pass graft, critically aortic stenosis, cardiomyopathy, hypertension, end-stage renal disease, severe anemia, had a brachiosubclavian hybrid graft, postop day #3, complicated by a vascular steal, status post distal revascularization, interval ligation procedure and fasciotomy of left hand, postop day # 2, post procedure remains hypotensive. 1. The patient remains hypotensive, but he is asymptomatic, patient has severe cardiomyopathy, nieves nue inotropic support for the time being. 2. Continue neurovascular checks, left arm is warm, there is no pain, doing well. 3. The patient had dialysis yesterday, he did not have any ultrafiltration done because of low blood pressure, patient will receive dialysis again tomorrow, we will try to remove 1 kilogram. 4. Hemoglobin is stable, status post 1 unit of blood transfusion, continue to monitor hemoglobin and hematocrit closely. 5. Thrombocytopenia, patient received 4 units of platelets, platelet count is holding, there is no e vidence of bleeding. 6. Critically aortic stenosis. The patient is awaiting transcatheter aortic valve replacement. 7. Rising troponins, patient is asymptomatic, continue to monitor closely. 8. Hypoalbuminemia. Push p.o. intake. 9. Case discussed with cardiology. 10. Case discussed with ICU staff. Case discussed with at bedside. 11. More than 35 minutes spent in the care of this critically ill patient. Gwen Matt MD cc: [phone] TT: 09/02/2016 13:27:34 Confirmation # [id number] Dictation # [id number] en
--- NOTE | 2016-09-02 15:02 | PN ---
DATE: 09/02/2016 SUBJECTIVE: The patient denies any chest pain, is still on low dose Dobutrex at 2.5 mcg per minute. No reported ventricular arrhythmia. PHYSICAL EXAMINATION: VITAL SIGNS: Blood pressure 82/48, heart rate 94, temperature 97.6, respiration 20. HEENT: Pale conjunctivae. CHEST: Diminished breath sounds over the bases. HEART: S1, S2 regular. EXTREMITIES: No ischemic changes in the left upper extremity. LABORATORIES: Hemoglobin and hematocrit 9.9 and 30.6, white count 5.5, platelet count is 103,000. T kenan's BUN and creatinine are 27 and 3.3. Troponin is climbing at 0.81. ASSESSMENT: 1. Status post revision of left subclavian fistula because of an acute left arm ischemia. 2. Coronary artery disease status post coronary stenting. 3. Borderline troponin elevation. 4. Chronic renal insufficiency. 5. Borderline hypotension. RECOMMENDATIONS: Continue current low dose dobutamine at mcg per minute. Continue Plavix 75 m g once a day, aspirin 81 mg once a day. The patient was on subcutaneous heparin 5000 units twice a d ay, which was discontinued today; however, the patient is still receiving heparin while on hemodialys is. Cristopher Lopez MD cc: [id number] TT: 09/02/2016 15:01:49 Confirmation # [id number] Dictation # [id number] judy
[2016-09-03 05:59] LABS: ADD MANUAL DIFF? NO
[2016-09-03 06:03] LABS: BASO # 0.01 K/mm3 (0.0-2.0); BASO % 0.2 % (0.0-3.0); EOS # 0.2 (0.0-0.7); EOS % 4.7 % (1.5-5.0); GRAN # 4.08 (1.4-6.5); HEMATOCRIT 28.8 % (42.0-52.0); LYMPH # 0.4 (1.2-3.4); LYMPH % 7.5 % (22.0-35.0); MEAN CELL VOLUME 101.4 fL (80.0-105.0); MEAN CORPUSCULAR HEMOGLOBIN 32.7 pg (25.0-35.0); MEAN CORPUSCULAR HGB CONC 32.3 g/dl (31.0-37.0); MEAN PLATELET VOLUME 9.8 fl (7.0-11.0); MONO # 0.4 (0.1-0.6); MONO % 7.6 % (1.0-6.0); PLATELET COUNT 108 10^3/uL (120.0-450.0); WHITE BLOOD COUNT 5.1 10^3/ul (4.5-11.0)
[2016-09-03 06:50] LABS: ALB/GLOB RATIO 1.1 (1.1-1.8); CALCIUM 8.9 mg/dL (8.4-10.5); MAGNESIUM 2.1 mg/dL (1.7-2.2); PHOSPHOROUS 3.5 mg/dL (2.5-4.5); TOTAL PROTEIN 5.6 g/dL (5.8-8.3)
[2016-09-03 07:36] LABS: TROPONIN I 0.53 ng/mL
--- NOTE | 2016-09-03 11:02 | CP.PCM.PN ---
Subjective - Date & Time of Evaluation Date of Evaluation: 09/03/16 Time of Evaluation: 07:00 - Subjective Subjective: Vascular Surgery: Dr. Calderon Pt seen and examined. No acute overnight events. States he feels better but admits to some post-op pain. States he's able to move his left arm/wrist. Denies chest pain or SOB. Objective - Vital Signs/Intake and Output Vital Signs (last 24 hours): Temp Pulse Resp BP Pulse Ox 98.7 F 102 H 46 H 76/44 L 91 L 09/03/16 08:38 09/03/16 09:00 09/03/16 09:00 09/03/16 08:00 09/03/16 09:00 Intake and Output: 09/03/16 09/03/16 06:59 18:59 Intake Total 144 Output Total 50 Balance 94 - Medications Medications: Current Medications Aspirin (Aspirin Chewable) 81 mg PO DAILY [facility] Last Admin: 09/03/16 09:04 Dose: 81 mg Atorvastatin Calcium (Lipitor) 10 mg PO DIN [facility] Last Admin: 09/02/16 16:44 Dose: 10 mg Clopidogrel Bisulfate (Plavix) 75 mg PO DAILY [facility] Last Admin: 09/03/16 09:04 Dose: 75 mg Hydromorphone HCl (Dilaudid) 0.5 mg IVP Q4H PRN PRN Reason: Pain, moderate (4-7) Dobutamine HCl/Dextrose (Dobutamine/Dextrose 5% 500mg/250ml) 500 mg in 250 mls @ 4.763 mls/hr IV .Q24H PRN; Protocol; 2.5 MCG/KG/MIN PRN Reason: TITRATE PER PROTOCOL Last Admin: 09/02/16 09:08 Dose: 4.763 mls/hr Metoclopramide HCl (Reglan) 10 mg IV ONCE PRN PRN Reason: Nausea/Vomiting Midodrine (Proamatine) 5 mg PO DAILY [facility] Last Admin: 09/03/16 09:04 Dose: 5 mg Nitroglycerin (Nitro-Bid 2% Oint) 1 ea TOP Q6 [facility] Last Admin: 08/31/16 17:38 Dose: 1 ea Ondansetron HCl (Zofran Inj) 4 mg IVP Q4H PRN PRN Reason: Nausea/Vomiting - Labs Labs: 09/03/16 05:30 09/03/16 05:30 - Constitutional Appears: Well, No Acute Distress - Head Exam Head Exam: ATRAUMATIC, NORMOCEPHALIC - Eye Exam Eye Exam: Normal appearance - ENT Exam ENT Exam: Mucous Membranes Moist - Respiratory Exam Respiratory Exam: NORMAL BREATHING PATTERN - Cardiovascular Exam Cardiovascular Exam: Tachycardia - GI/Abdominal Exam GI & Abdominal Exam: Soft - Extremities Exam Additional comments: Left arm dressings clean, dry, intact. b/l upper extremities warm - Neurological Exam Neurological Exam: Alert, Awake - Skin Skin Exam: Dry, Warm Assessment and Plan - Assessment and Plan (Free Text) Assessment: 86M s/p DRIL with L hand fasciotomy; POD#3 Plan: - L arm AV graft ok to use for dialysis - pt ok to DC from surgical standpoint - f/u with Dr. Calderon in 1 week - remove permacath prior to DC - d/w Dr. Kvng Arechiga, PGY-2 Surgery
--- NOTE | 2016-09-03 11:25 | PN ---
DATE: 09/03/2016 SUBJECTIVE: The patient is in bed without shortness of breath. PHYSICAL EXAMINATION: VITAL SIGNS: Blood pressure is 117 systolic, heart rate is in the 90s. NECK: Negative JVD. LUNGS: Decreased breath sounds. HEART: Reveals a III/ systolic ejection murmur. EXTREMITIES: Positive edema. LABORATORIES: Hemoglobin is 9.3. Chemistries: Troponin has bumped to 0.53. IMPRESSION: 1. Status post shunt placement, which was complicated by a steal phenomenon. 2. Elevated troponins consistent with a non-ST segment elevation myocardial infarction. 3. End-stage renal disease. 4. Critical aortic stenosis. 5. Right heart congestive heart failure. Given these findings, we will remove. I have spoke to Dr. Calderon. The Perm-A-Cath needs to be removed . He will undergo dialysis today. I will discuss with Dr. Ramos in [facility] about possibl y transferring the patient for TAVR. Preston Vasquez MD cc: [phone] TT: 09/03/2016 11:24:23 Confirmation # [id number] Dictation # [id number] an
--- NOTE | 2016-09-03 12:27 | PN ---
DATE: 09/03/2016 SUBJECTIVE: The patient is seen lying in bed in the ICU. The is at bedside. He complains of s ome difficulty breathing. He also complains of scrotal swelling. He denies any pain in his left avelar d or left arm. He denies any chest tightness at present. PHYSICAL EXAMINATION: GENERAL: Elderly male lying in bed in the ICU, on dobutamine drip. VITAL SIGNS: Blood pressure 81/47, heart rate 100, respiratory rate 20-24, temperature 98.7. HEENT: Normocephalic, atraumatic, positive pallor. NECK: Supple, no JVD. LUNGS: Bilateral crackles, bilateral rhonchi, equal expansion. CARDIAC: S1, S2, positive murmur, no rub. ABDOMEN: Soft, nondistended, nontender, bowel sounds present. EXTREMITIES: 4+ pitting edema of the lower extremities, scrotal edema. INTAKE AND OUTPUT: 500/50. LABORATORY DATA: WBC 5, hemoglobin 9, hematocrit 28.8, platelets 108. Sodium 133, potassium 4.0, ch loride 94, CO2 31, BUN 37, creatinine 3.9, glucose 87, calcium 8.9, phosphorus 3.45, magnesium 2.1. AST 18, ALT 25. Troponin 0.5. Albumin 2.9. CURRENT MEDICATIONS: Aspirin, Dilaudid, Lipitor, Plavix, ProAmatine, Reglan, Zofran, and dobutamine. ASSESSMENT AND PLAN: An 86-year-old male with history of coronary artery disease, coronary artery by pass graft, congestive heart failure, cardiomyopathy, critical aortic stenosis, end-stage renal disea se, anemia of chronic kidney disease, status post left brachial subclavian hybrid graft placement, po stoperative day #4. Procedure complicated by vascular steal, he is status post distilled revasculari zation and interval ligation with fasciotomy of left hand, postoperative day #3. Remains profoundly hypotensive, mostly a function of his severe cardiomyopathy and critical aortic stenosis. The patien t has significant edema. He has 4+ pitting edema of his lower extremities, scrotal edema, pulmonary edema. At this time, the patient is critically ill because of his cardiomyopathy, aortic stenosis an d edema. Case is discussed with Dr. Vasquez. We will try to cautiously dialyze him, try to ultrafiltra te about 1 kilogram so as to improve his respiratory status. Plan is for patient to be hopefully dis charged home after dialysis today. The patient urgently needs a TAVR. AV graft was created so as to enable removal of Perm-A-Cath and get patient ready for surgery. 1. Profound hypotension. Discontinue dobutamine as per Dr. Vasquez. 2. Dialysis today. Attempt ultrafiltration of 1 kilogram. 3. The patient received 1 unit of PRBCs. Hemoglobin is stable. Continue to monitor. 4. Plan for TAVR for critical aortic stenosis. 5. Push p.o. intake. Case discussed with Dr. Vasquez, case discussed with the ICU team, case discussed with dialysis team. More than 35 minutes spent in the care of this critically ill patient. Gwen Matt MD cc: [id number] TT: 09/03/2016 12:26:32 Confirmation # [id number] Dictation # [id number] jannette
--- NOTE | 2016-09-03 14:29 | CP.CCUPN ---
<Favio Diego - Last Filed: 09/03/16 14:23> CCU Subjective - Physician Review Subjective (Free Text): 09/03/16 14:23 Patient seen and examined at bedside in the ICU. Today is hospital day 5. Patient resting comfortably in bed, without obvious or acute distress. Reports persistence of left shoulder and arm soreness, but denies new pain, chest pain, shortness of breath, pain with inspiration. No abnormal sensation in the left arm, no squeezing sensation, no left shoulder/arm pain. CCU Objective - Vital Signs / Intake & Output Vital Signs (Last 4 hours): Vital Signs Pulse Resp BP Pulse Ox 09/03/16 11:33 93 H 27 H 88/39 L 94 L 09/03/16 11:31 93 H 23 64/33 L 93 L 09/03/16 11:30 93 H 94 L 09/03/16 11:20 93 H 21 94 L 09/03/16 11:10 94 H 24 95 09/03/16 11:01 97 H 24 90/31 L 93 L 09/03/16 11:00 98 H 27 H 94 L 09/03/16 10:50 98 H 24 96 09/03/16 10:40 96 H 26 H 94 L 09/03/16 10:30 99 H 26 H 92 L Intake and Output (Last 8hrs): Intake & Output 09/02/16 09/03/16 09/03/16 22:59 06:59 14:59 Intake Total 356 144 Output Total 50 Balance 356 94 Weight 69.173 kg Intake: IV 56 44 Dobutamine drip 56 44 Oral 300 100 Output: Urine 50 Urine, Voided 50 Other: Voiding Method Urinal - Physical Exam Head: Positive for: Atraumatic, Normocephalic Pupils: Negative for: Pinpoint Extroacular Muscles: Positive for: EOMI. Negative for: Gaze Palsy, Entrapment Conjunctiva: Positive for: Normal. Negative for: Injected, Icteric Mouth: Positive for: Moist Mucous Membranes. Negative for: Drooling Nose (External): Positive for: Atraumatic. Negative for: Abrasion, Contusion, Laceration Neck: Positive for: Normal Range of Motion, Trachea Midline. Negative for: JVD Respiratory/Chest: Positive for: Clear to Auscultation, Good Air Exchange. Negative for: Respiratory Distress, Accessory Muscle Use, Wheezes, Decreased Breath Sounds, Rales, Rhonchi, Tachypneic, Tender to Palpation Cardiovascular: Positive for: Regular Rate and Rhythm, Normal S1, S2. Negative for: Murmurs, Irregular Rhythm, Tachycardic, Bradycardic Abdomen: Positive for: Normal Bowel Sounds. Negative for: Tenderness, Distention, Peritoneal Signs Genitourinary Male: Positive for: Other (Scrotal Edema, penis remains visible, no discharge, no "[id number]" sensation on palpation) Upper Extremity: Positive for: Other (Right arm: Normal ROM, normal sensation, + 2 radial pulse, no lacerations or deformities; Left arm: hand bandaged without active bleeding/oozing, arm in sling but lifting out of sling without overt difficulty or pain, no erythema, no edema, intact +2 radial pulse). Negative for: Cyanosis Lower Extremity: Positive for: Edema (+1-2 pitting edema in bilateral LE from thigh to knee, +2 below knee). Negative for: CALF TENDERNESS, NORMAL PULSES ( unable to palpate pedal pulses), Cyanosis, Tenderness, Swelling, Erythema Neurological: Positive for: GCS=15, CN II-XII Intact, Speech Normal, Motor Func Grossly Intact Skin: Positive for: Warm, Dry, Normal Color. Negative for: Rashes Psychiatric: Positive for: Alert, Oriented x 3, Normal Insight, Normal Concentration, Normal Affect, Normal Mood - Medications Active Medications: Active Medications Generic Name Dose Route Start Last Admin Trade Name Freq PRN Reason Stop Dose Admin Acetaminophen 650 mg 09/03/16 12:15 Tylenol 325mg Tab PO Q4H PRN Pain, moderate (4-7) Aspirin 81 mg 09/01/16 13:15 09/03/16 09:04 Aspirin Chewable PO 81 mg DAILY FABRIZIO Administration Atorvastatin Calcium 10 mg 08/30/16 18:45 09/02/16 16:44 Lipitor PO 10 mg DIN FABRIZIO Administration Clopidogrel Bisulfate 75 mg 09/01/16 13:15 09/03/16 09:04 Plavix PO 75 mg DAILY FABRIZIO Administration Metoclopramide HCl 10 mg 08/31/16 12:53 Reglan IV ONCE PRN Nausea/Vomiting Midodrine 5 mg 08/31/16 10:00 09/03/16 09:04 Proamatine PO 5 mg DAILY FABRIZIO Administration Nitroglycerin 1 ea 04/28/17 18:00 08/31/16 17:38 Nitro-Bid 2% Oint TOP 1 ea Q6 FABRIZOI Administration Ondansetron HCl 4 mg 08/31/16 13:05 Zofran Inj IVP Q4H PRN Nausea/Vomiting Tamsulosin HCl 0.4 mg 09/03/16 12:15 09/03/16 12:45 Flomax PO 0.4 mg DAILY FABRIZIO Administration - Patient Studies Lab Studies: Microbiology Studies 08/31/16 14:34 MRSA Culture (Admit) - Final Nose MRSA NOT DETECTED Lab Studies 09/03/16 09/03/16 08/30/16 Range/Units 05:30 05:30 11:03 WBC 5.1 (4.5-11.0) 10^3/ul RBC 2.84 L (3.5-6.1) 10^6/uL Hgb 9.3 L (14.0-18.0) gm/dL Hct 28.8 L (42.0-52.0) % MCV 101.4 (80.0-105.0) fL MCH 32.7 (25.0-35.0) pg MCHC 32.3 (31.0-37.0) g/dl RDW 19.0 H (11.5-14.5) % Plt Count 108 L (120.0-450.0) 10^3/uL MPV 9.8 (7.0-11.0) fl Gran % 80.0 H (50.0-68.0) % Lymph % (Auto) 7.5 L (22.0-35.0) % [place] % (Auto) 7.6 H (1.0-6.0) % Eos % (Auto) 4.7 (1.5-5.0) % Baso % (Auto) 0.2 (0.0-3.0) % Gran # 4.08 (1.4-6.5) Lymph # 0.4 L (1.2-3.4) [place] # 0.4 (0.1-0.6) Eos # 0.2 (0.0-0.7) Baso # 0.01 (0.0-2.0) K/mm3 Sodium 133 (132-148) mmol/L Potassium 4.0 (3.6-5.0) mmol/L Chloride 94 L (98-107) mmol/L Carbon Dioxide 31 (21-33) mmol/L Anion Gap 12 (10-20) BUN 37 H (7-21) mg/dL Creatinine 3.9 H (0.5-1.4) mg/dL Est GFR ( Amer) 18 Est GFR (Non-Af Amer) 15 Random Glucose 87 (70-110) mg/dL Calcium 8.9 (8.4-10.5) mg/dL Phosphorus 3.5 (2.5-4.5) mg/dL Magnesium 2.1 (1.7-2.2) mg/dL Total Bilirubin 1.0 (0.2-1.3) mg/dL AST 18 (15-59) U/L ALT 25 (7-56) U/L Alkaline Phosphatase 72 (38-133) U/L Lactate Dehydrogenase 326 L (333-699) U/L Total Creatine Kinase 25 L (35-230) U/L Troponin I 0.53 H* D ng/mL Total Protein 5.6 L (5.8-8.3) g/dL Albumin 2.9 L (3.0-4.8) g/dL Globulin 2.7 gm/dL Albumin/Globulin Ratio 1.1 (1.1-1.8) Crossmatch See Detail Laboratory Results - last 24 hr 08/30/16 09/03/16 09/03/16 11:03 05:30 05:30 WBC 5.1 RBC 2.84 L Hgb 9.3 L Hct 28.8 L MCV 101.4 MCH 32.7 MCHC 32.3 RDW 19.0 H Plt Count 108 L MPV 9.8 Gran % 80.0 H Lymph % (Auto) 7.5 L [place] % (Auto) 7.6 H Eos % (Auto) 4.7 Baso % (Auto) 0.2 Gran # 4.08 Lymph # 0.4 L [place] # 0.4 Eos # 0.2 Baso # 0.01 Sodium 133 Potassium 4.0 Chloride 94 L Carbon Dioxide 31 Anion Gap 12 BUN 37 H Creatinine 3.9 H Est GFR ( Amer) 18 Est GFR (Non-Af Amer) 15 Random Glucose 87 Calcium 8.9 Phosphorus 3.5 Magnesium 2.1 Total Bilirubin 1.0 AST 18 ALT 25 Alkaline Phosphatase 72 Lactate Dehydrogenase 326 L Total Creatine Kinase 25 L Troponin I 0.53 H* D Total Protein 5.6 L Albumin 2.9 L Globulin 2.7 Albumin/Globulin Ratio 1.1 Crossmatch See Detail Fingerstick Blood Sugar Results: 114 Review of Systems - Constitutional Constitutional: absent: Fever, Chills - EENT Eyes: absent: Blurred Vision, Loss of Vision Ears: absent: Dizziness Nose/Mouth/Throat: absent: Sore Throat, Neck Pain - Cardiovascular Cardiovascular: absent: Chest Pain, Diaphoresis, Dyspnea, Palpitations, Syncope - Respiratory Respiratory: absent: Cough, Dyspnea, Hemoptysis, Pain on Inspiration - Gastrointestinal Gastrointestinal: absent: Abdominal Pain, Constipation, Diarrhea, Nausea, Vomiting - Genitourinary Genitourinary: absent: Dysuria, Flank Pain, Hematuria - Musculoskeletal Musculoskeletal: absent: Back Pain, Muscle Weakness - Integumentary Integumentary: absent: Pruritus, Rash - Neurological Neurological: absent: Loss of Vision, Syncope, Other Visual Disturbances - Endocrine Endocrine: absent: Palpitations Critical Care Progress Note - Nutrition Nutrition: Nutrition Category Date Time Status Renal Diet [DIET] Diets 08/31/16 Lunch Ordered Assessment/Plan - Assessment and Plan (Free Text) Assessment: This is an 86 yo M with PMH of ESRD on HD, CAD s/p CABG and stents, and critical post valvuloplasty pending TAVR who was admitted to the ICU s/p AV fistula revision and left hand fasciotomy for close observation, given persistent hypotension. Today, patient retains good distal and proximal pulses in the left arm and hand, and is stable for transfer. Plan: Neuro: -awake, alert, following all commands appropriately -maintain normothermia Pulm: -satting well on room air -maintain SaO2 > 90% and paO2 > 60 -Aspiration precautions Cardio: -RRR on exam, persistently hypotensive (SBP 80's-90's since arrival to ICU, confirms this is pt's baseline) -Will d/c dilaudid for pain, trial on acetaminophen, this may improve BP as well -Trops now trending down, 0.53 today (was 0.81), continue to monitor -Dobutamine stopped as per Cardio -Cardio on board, appreciate all recs -POD #3 for AV fistula, fistula revision, and left hand fasciotomy; retains good radial and brachial pulses, sensation and gross motor function intact; Per Surgery: stable, ok for transfer -Maintain MAP > 65, currently not on pressors -Heparin SC q12 for DVT ppx -Continue ASA and Plavix -Continue lipitor -Continue Midodrine GI: -Renal diet -protonix for ppx -Reglan x1 ordered, Zofran PRN Renal: -ESRD on dialysis, scheduled for another round today -monitor and replete electrolytes as needed; less aggressive with repletion given ESRD, risk of accumulation -Nephro on board, appreciate all recs -Hx urine outflow obstruction, restarted on Flomax at family's request Heme: -Hgb 9.3, Plt 108 -s/p 1 unit pRBCs and 4 units platelets, last transfused 08/31/16 ID: -WBCs 5.1, afebrile -continue to monitor Dispo: ICU, pending transfer to remote telemetry FEN: Renal diet Access: Peripheral IV, right port-a-cath Consults: Cardio, Nephro, Surgery Ppx: Protonix for GI, Lovenox for DVT Patient seen, reviewed, and discussed with attending, Dr. Acuna. - Date & Time Date: 09/03/16 Time: 15:21 <Armand LUO,[facility] - Last Filed: 09/03/16 18:54> CCU Objective - Vital Signs / Intake & Output Intake and Output (Last 8hrs): Intake & Output 09/03/16 09/03/16 09/03/16 06:59 14:59 22:59 Intake Total 144 Output Total 50 Balance 94 Weight 152 lb 8 oz Intake: IV 44 Dobutamine drip 44 Oral 100 Output: Urine 50 Urine, Voided 50 Other: Voiding Method Urinal - Medications Active Medications: Active Medications Generic Name Dose Route Start Last Admin Trade Name Freq PRN Reason Stop Dose Admin Acetaminophen 650 mg 09/03/16 12:15 Tylenol 325mg Tab PO Q4H PRN Pain, moderate (4-7) Aspirin 81 mg 09/01/16 13:15 09/03/16 09:04 Aspirin Chewable PO 81 mg DAILY FABRIZIO Administration Atorvastatin Calcium 10 mg 08/30/16 18:45 09/02/16 16:44 Lipitor PO 10 mg DIN FABRIZIO Administration Clopidogrel Bisulfate 75 mg 09/01/16 13:15 09/03/16 09:04 Plavix PO 75 mg DAILY FABRIZIO Administration Heparin Sodium (Porcine) 5,000 units 09/03/16 22:00 Heparin SC Q12 [facility] Protocol Metoclopramide HCl 10 mg 08/31/16 12:53 Reglan IV ONCE PRN Nausea/Vomiting Midodrine 5 mg 08/31/16 10:00 09/03/16 09:04 Proamatine PO 5 mg DAILY FABRIZIO Administration Nitroglycerin 1 ea 08/31/16 18:00 08/31/16 17:38 Nitro-Bid 2% Oint TOP 1 ea Q6 FABRIZIO Administration Ondansetron HCl 4 mg 08/31/16 13:05 Zofran Inj IVP Q4H PRN Nausea/Vomiting Tamsulosin HCl 0.4 mg 09/03/16 12:15 09/03/16 12:45 Flomax PO 0.4 mg DAILY FABRIZIO Administration - Patient Studies Lab Studies: Lab Studies 09/03/16 09/03/16 08/30/16 Range/Units 05:30 05:30 11:03 WBC 5.1 (4.5-11.0) 10^3/ul RBC 2.84 L (3.5-6.1) 10^6/uL Hgb 9.3 L (14.0-18.0) gm/dL Hct 28.8 L (42.0-52.0) % MCV 101.4 (80.0-105.0) fL MCH 32.7 (25.0-35.0) pg MCHC 32.3 (31.0-37.0) g/dl RDW 19.0 H (11.5-14.5) % Plt Count 108 L (120.0-450.0) 10^3/uL MPV 9.8 (7.0-11.0) fl Gran % 80.0 H (50.0-68.0) % Lymph % (Auto) 7.5 L (22.0-35.0) % [place] % (Auto) 7.6 H (1.0-6.0) % Eos % (Auto) 4.7 (1.5-5.0) % Baso % (Auto) 0.2 (0.0-3.0) % Gran # 4.08 (1.4-6.5) Lymph # 0.4 L (1.2-3.4) [place] # 0.4 (0.1-0.6) Eos # 0.2 (0.0-0.7) Baso # 0.01 (0.0-2.0) K/mm3 Sodium 133 (132-148) mmol/L Potassium 4.0 (3.6-5.0) mmol/L Chloride 94 L (98-107) mmol/L Carbon Dioxide 31 (21-33) mmol/L Anion Gap 12 (10-20) BUN 37 H (7-21) mg/dL Creatinine 3.9 H (0.5-1.4) mg/dL Est GFR ( Amer) 18 Est GFR (Non-Af Amer) 15 Random Glucose 87 (70-110) mg/dL Calcium 8.9 (8.4-10.5) mg/dL Phosphorus 3.5 (2.5-4.5) mg/dL Magnesium 2.1 (1.7-2.2) mg/dL Total Bilirubin 1.0 (0.2-1.3) mg/dL AST 18 (15-59) U/L ALT 25 (7-56) U/L Alkaline Phosphatase 72 (38-133) U/L Lactate Dehydrogenase 326 L (333-699) U/L Total Creatine Kinase 25 L (35-230) U/L Troponin I 0.53 H* D ng/mL Total Protein 5.6 L (5.8-8.3) g/dL Albumin 2.9 L (3.0-4.8) g/dL Globulin 2.7 gm/dL Albumin/Globulin Ratio 1.1 (1.1-1.8) Crossmatch See Detail Laboratory Results - last 24 hr 08/30/16 09/03/16 09/03/16 11:03 05:30 05:30 WBC 5.1 RBC 2.84 L Hgb 9.3 L Hct 28.8 L MCV 101.4 MCH 32.7 MCHC 32.3 RDW 19.0 H Plt Count 108 L MPV 9.8 Gran % 80.0 H Lymph % (Auto) 7.5 L [place] % (Auto) 7.6 H Eos % (Auto) 4.7 Baso % (Auto) 0.2 Gran # 4.08 Lymph # 0.4 L [place] # 0.4 Eos # 0.2 Baso # 0.01 Sodium 133 Potassium 4.0 Chloride 94 L Carbon Dioxide 31 Anion Gap 12 BUN 37 H Creatinine 3.9 H Est GFR ( Amer) 18 Est GFR (Non-Af Amer) 15 Random Glucose 87 Calcium 8.9 Phosphorus 3.5 Magnesium 2.1 Total Bilirubin 1.0 AST 18 ALT 25 Alkaline Phosphatase 72 Lactate Dehydrogenase 326 L Total Creatine Kinase 25 L Troponin I 0.53 H* D Total Protein 5.6 L Albumin 2.9 L Globulin 2.7 Albumin/Globulin Ratio 1.1 Crossmatch See Detail Critical Care Progress Note - Nutrition Nutrition: Nutrition Category Date Time Status Renal Diet [DIET] Diets 08/31/16 Lunch Ordered Attending/Attestation - Attestation I have personally seen and examined this patient.: Yes I have fully participated in the care of the patient.: Yes I have reviewed all pertinent clinical information: Yes Notes (Text): 09/03/16 18:53 86 y/o M s/p AV fistula revision On dobutamine prior du eto low EF and ESRD On HD Fistula placed and STEAl corrected. r HD catheter to be removed for possible TAVR Per Cardiology can be transfered to telemetry. Surgery ok with transfer.
[2016-09-04 06:47] LABS: ADD MANUAL DIFF? NO
[2016-09-04 06:49] LABS: BASO # 0.04 K/mm3 (0.0-2.0); BASO % 0.8 % (0.0-3.0); EOS # 0.3 (0.0-0.7); GRAN # 3.39 (1.4-6.5); GRAN % 69.7 % (50.0-68.0); HEMATOCRIT 30.1 % (42.0-52.0); LYMPH # 0.6 (1.2-3.4); MEAN CORPUSCULAR HEMOGLOBIN 33.2 pg (25.0-35.0); MEAN CORPUSCULAR HGB CONC 33.2 g/dl (31.0-37.0); MEAN PLATELET VOLUME 9.4 fl (7.0-11.0); MONO # 0.5 (0.1-0.6); MONO % 9.5 % (1.0-6.0); PLATELET COUNT 95 10^3/uL (120.0-450.0); RED CELL DISTRIBUTION WIDTH 18.2 % (11.5-14.5); WHITE BLOOD COUNT 4.9 10^3/ul (4.5-11.0)
[2016-09-04 06:59] LABS: BILIRUBIN,TOTAL 1.2 mg/dL (0.2-1.3); CALCIUM 8.8 mg/dL (8.4-10.5); MAGNESIUM 2.1 mg/dL (1.7-2.2); PHOSPHOROUS 3.4 mg/dL (2.5-4.5); POTASSIUM 4.3 mmol/L (3.6-5.0); TOTAL PROTEIN 5.9 g/dL (5.8-8.3)
[2016-09-04] MEDS ORDERED: Doxercalciferol 4 mcg/2 ml Inj (RENAL) IVP ONE (08:51)
[2016-09-04] MEDS ORDERED: Doxercalciferol 4 mcg/2 ml Inj IV ONE (09:00)
[2016-09-04] MEDS ORDERED: Doxercalciferol 4 mcg/2 ml Inj IVP ONE (09:10)
[2016-09-04] MEDS ORDERED: Lidocaine 2% Inj (20ml) ONE (10:12)
[2016-09-04] MEDS ORDERED: Midazolam 2 MG/2 ML VIAL ONE (10:45)
--- NOTE | 2016-09-04 11:54 | PN ---
DATE: 09/04/2016 The patient has finally had his graft placed. He is having his Port-A-Cath removed. These are the c onditions that were necessary before [facility] would consider TAVR. I have discussed TAVR with Dr. Ramos at [facility]. They have scheduled him to be done as an outpatient on Saturday. All workup has been done. The message has been given to the patient and his about TAV R for the next week. Preston Vasquez MD cc: [id number] TT: 09/04/2016 11:53:04 Confirmation # [id number] Dictation # [id number] tn
--- NOTE | 2016-09-04 16:14 | PN ---
DATE: 09/04/2016 SUBJECTIVE: The patient is currently seen sitting up in a chair. He is status post dialysis with re moval of 1.47 liters of fluid. The patient's dialysis was complicated by hypotension with systolic b lood pressures down into the upper 70s. The patient continues to have lower extremity edema. We are successfully using his left upper extremity AV graft. MEDICATIONS: Medication list reviewed. The patient is currently on aspirin, Flomax, heparin, Lipito r, nitroglycerin ointment, Plavix, ProAmatine, Reglan p.r.n., Tylenol p.r.n., Zofran p.r.n. Of note, the nitro paste is on hold because of hypotension. OBJECTIVE: INTAKE AND OUTPUT: Intake 300, output 50. VITAL SIGNS: Post-dialysis blood pressure presently is 90/60, respiratory rate 14, heart rate 94, te mperature 98. HEENT: Normocephalic, atraumatic. Conjunctivae are pale. Sclerae are nonicteric. NECK: Supple, no neck vein distention. CHEST: Decreased breath sounds at the bases. Scattered rhonchi. No rales, no wheezing. CARDIOVASCULAR: S1, S2 normal. Positive harsh systolic ejection murmur, left lower sternal border. ABDOMEN: Soft. Bowel sounds normal. No masses, no rebound, no guarding. EXTREMITIES: Show a left upper extremity AV graft. He is status post removal of a right chest wall PermCath. Lower extremity shows 2-3+ pitting edema of his lower extremity bilaterally with diminishe d lower extremity pulses. LABORATORY DATA AND IMAGING: CBC: White blood cell count today 4.9 with a hemoglobin of 10.0. Plat elet count is 95,000. Chemistries today show a sodium of 133, potassium 4.3, chloride 96 with a CO2 of 29, BUN is 32 with a creatinine of 3.6. Glucose is 92. Calcium and phosphorus are normal at 8.8 and 3.4. Magnesium is 2.1. Albumin is 2.9. ASSESSMENT: 1. End-stage renal disease. The patient is back on Saturday, , Saturday dialysis schedule. The patient remains hypotensive. The patient was transferred from the intensive care unit. He is of f inotropic support. He remains on ProAmatine. Hypotension makes it difficult to ultrafiltrate the fluid. The patient will be cautious not to gain a significant amount of weight between dialysis kalyan tments. 2. Status post creation of a left brachial subclavian hybrid graft. The patient has had the graft c annulated successfully. PermCath has been removed. He is postop day #5. The procedure was complica gisele by steal. He is status post revascularization and interval ligation with fasciotomy of the left hand for steal syndrome, postop day #4. 3. Arteriosclerotic heart disease status post coronary artery bypass graft. Significant and critica l aortic stenosis. The patient is awaiting transfer to [facility] for a transcathete r aortic valve replacement. He will likely spend the next 8 days in the transitional care unit rehab ilitating. 4. Hyperlipidemia. The patient will continue statin therapy. 5. Secondary hyperparathyroidism. Phosphorus level is controlled. 6. Lower extremity edema. The patient will continue to have more fluid removed with dialysis, blood pressure permitting. We will continue ProAmatine prior to dialysis. Hopefully, after he has his tr anscatheter aortic valve replacement and the critical aortic stenosis is relieved, he will be able to tolerate more aggressive dialysis and remain normotensive through the treatment. PLAN: 1. Discussed with patient's and patient in detail. is concerned about patient not receivi medicine for his gout. He is complaining of mild knee pain. She would like him to go back on Ulo cherelle. This can be given 3 times a week. His will likely bring the medication from home. 2. Continue ProAmatine as ordered. He is currently on 5 mg a day. This dose can be increased as ne cessary for hypotension. 3. Agree with decision to transfer patient to the TCU, awaiting transfer to [facility] for a TAVR. Jackson Mccray MD cc: [id number] TT: 09/04/2016 16:13:10 Confirmation # [id number] Dictation # [id number] sn
--- NOTE | 2016-09-04 17:16 | VASCULAR ---
PROCEDURE: Removal of tunneled right IJ dialysis catheter. CLINICAL HISTORY: End-stage renal disease. Functioning left upper extremity AV access. Removed tunneled catheter. PHYSICIAN(S): Preston Conrad M.D. TECHNIQUE: The relative risks and indications of the procedure were explained to the patient and his and consent obtained. The patient was placed supine on the arteriogram table and the tunneled right IJ dialysis catheter prepped and draped in the usual sterile fashion. Conscious sedation and monitoring were provided throughout the procedure by nurse. 1% Xylocaine was used to anesthetize skin and soft tissues along the tunnel. The tunnel and cuff were bluntly dissected. The catheter was removed and pressure applied at the venous insertion site. A single interrupted suture was placed at the exit site. The patient tolerated the procedure well. IMPRESSION: 1. Removal of the patient's tunneled right IJ dialysis catheter.
--- NOTE | 2016-09-05 09:19 | PN ---
DATE: 09/05/2016 The patient is an 86-year-old Syrian male well known to me for many years with hypertension, histor y of renal insufficiency in the past which he, for many years, has recovered from renal failure. The patient recently was evaluated for a TAVR and congestive heart failure. He developed acute renal in sufficiency necessitating dialysis. Even on dialysis, awaiting his TAVR procedure at [facility]; [facility], he developed an episode during dialysis of hypotension during dialysis and was found to have a clot in his graft. The patient was admitted to the hospital, was seeing Dr. Calderon. He had an embole ctomy and had a left brachial subclavian hybrid graft established. His PermCath was removed. His pr ocedure was complicated by steal syndrome. He is status post revascularization and interval ligation , fasciotomy of the left hand for his steal syndrome. He is postop day #5. He does have history of CAD and status post bypass surgery in the past, also history of critical aortic stenosis, awaiting a TAVR procedure. The patient is doing well. He has discoloration of the left upper extremity. He is now using a right subclavian PermCath for dialysis. He is comfortable. PHYSICAL EXAMINATION: CHEST: Clear to auscultation. HEART: Regular sinus rhythm, but loud systolic ejection murmur at the left sternal border radiating to the neck. EXTREMITIES: Without cyanosis, clubbing or edema. Plan is to be transferred to [facility] over the next several days. Continue hemodialysis. Continu e postop treatment of his steal syndrome and his obstructed graft. The patient will be transferred t o [facility] until he is cleared for [facility]. Gwyn Rivera MD cc: [id number] TT: 09/05/2016 09:17:57 Confirmation # [id number] Dictation # [id number] tn
[2016-09-05 09:38] VITALS: BP 87/56; RESP 21; TEMP 98; O2SAT 99
[2016-09-05] MEDS ORDERED: POLYETHYLENE GLYCOL 3350 17 GM/Dose PACKET PO ONE (09:51)
--- NOTE | 2016-09-05 14:00 | PN ---
DATE: 09/05/2016 SUBJECTIVE: The patient is without shortness of breath. He is sitting in a chair. He was able to a mbulate with physical therapy today. PHYSICAL EXAMINATION: VITAL SIGNS: Reveal blood pressure of 90 systolic. Heart rate is in the 90s. NECK: Negative JVD. LUNGS: Without rales. HEART: Reveals a III/ systolic ejection murmur. EXTREMITIES: Without edema. LABORATORY DATA: Hemoglobin is 10. Chemistries: BUN and creatinine is 32 and 3.6. IMPRESSION: 1. Non-ST elevation myocardial infarction. 2. Status post coronary artery bypass surgery. 3. Coronary artery disease. 4. Diabetes mellitus. 5. Critical aortic stenosis. 6. End-stage renal disease. PLAN: Given these findings, the patient is able to walk once he was treated for his gout. The patie nt is scheduled for an outpatient evaluation at [facility] for TAVR scheduled for next week o n Saturday. Preston Vasquez MD cc: [phone] TT: 09/05/2016 13:59:21 Confirmation # [id number] Dictation # [id number] tn
[2016-09-05 18:17] VITALS: PULSE 97
--- NOTE | 2016-09-05 18:39 | CARD ---
APPROVED REPORT EKG Measurement Heart [id number] <Conclusion> Sinus rhythm with APCs and PVCs Left axis deviation Right bundle branch block Inferior infarct, age undetermined Anterior infarct, age undetermined Abnormal ECG
[2016-09-06] MEDS ORDERED: ULORIC 40 MG PO SCH (10:00)
--- NOTE | 2016-09-06 11:40 | DS ---
An 86-year-old Burmese male admitted to the hospital with an upper extremity loss of blood flow seco ndary to a steal syndrome from his shunt. The patient had revision by Dr. Calderon and a procedure to do a fasciotomy to remove the pressure and to reverse the steal syndrome. The patient did well. He is scheduled for TAVR procedure at [facility]. He will be transferred to [facility] today for his TAVR procedure for aortic stenosis. He also has a history of CAD, status post open h eart surgery; history of end-stage renal disease, on dialysis. The patient is stable. Vital signs a re stable. The patient will be transferred today and followed as an outpatient. Gwyn Rivera MD cc: [id number] TT: 09/06/2016 11:39:48 ms
--- NOTE | 2016-09-26 15:43 | RAD ---
PROCEDURE: FLUOROSCOPY OVER 1 HOUR HISTORY: LT ARM ARTERIOGRAM COMPARISON: TECHNIQUE: FLUOROSCOPY WAS PROVIDED IN THE OPERATING ROOM. AN INTRA OPERATIVE ARTERIOGRAM WAS PERFORMED OVER THE LEFT FOREARM FINDINGS: ABOVE IMPRESSION: ABOVE
== END 2016-09-05 18:20 | DRG 252 ==
LOC: SDS 10:29 → 3RNO 16:14 → SDS 08-31 14:10 → CCU 08-31 14:14 → 3RNO 09-03 20:02
PROVIDERS: ADMIT Internal Medicine Cardiovascular Disease; ATTEND Internal Medicine Cardiovascular Disease
PROC: 05JY0ZZ Inspection of Upper Vein, Open Approach (ICD-10-PCS; 2016-08-30)
PROC: 30233R1 Transfusion of Nonautologous Platelets into Peripheral Vein, Percutaneous Approach (ICD-10-PCS; 2016-08-30)
PROC: 03180JD Bypass Left Brachial Artery to Upper Arm Vein with Synthetic Substitute, Open Approach (ICD-10-PCS; principal; 2016-08-30 11:15)
PROC: 03L80ZZ Occlusion of Left Brachial Artery, Open Approach (ICD-10-PCS; 2016-08-31)
PROC: 0KND0ZZ Release Left Hand Muscle, Open Approach (ICD-10-PCS; 2016-08-31)
PROC: 30233N1 Transfusion of Nonautologous Red Blood Cells into Peripheral Vein, Percutaneous Approach (ICD-10-PCS; 2016-08-31)
PROC: 5A1D60Z (ICD-10-PCS; 2016-09-01)
PROC: 05PYX3Z Removal of Infusion Device from Upper Vein, External Approach (ICD-10-PCS; 2016-09-04)
DX: I13.2 Hypertensive heart and chronic kidney disease with heart failure and with stage 5 chronic kidney disease, or end stage renal disease (principal); N18.6 End stage renal disease; I21.4 Non-ST elevation (NSTEMI) myocardial infarction; T82.898A Other specified complication of vascular prosthetic devices, implants and grafts, initial encounter; D69.6 Thrombocytopenia, unspecified; I42.9 Cardiomyopathy, unspecified; E11.22 Type 2 diabetes mellitus with diabetic chronic kidney disease; N25.81 Secondary hyperparathyroidism of renal origin; I27.2 Other secondary pulmonary hypertension; I95.3 Hypotension of hemodialysis; I50.9 Heart failure, unspecified; I35.0 Nonrheumatic aortic (valve) stenosis; Z99.2 Dependence on renal dialysis; I25.10 Atherosclerotic heart disease of native coronary artery without angina pectoris; D63.1 Anemia in chronic kidney disease; E78.00 Pure hypercholesterolemia, unspecified; E78.5 Hyperlipidemia, unspecified; N50.89 Other specified disorders of the male genital organs; Y83.2 Surgical operation with anastomosis, bypass or graft as the cause of abnormal reaction of the patient, or of later complication, without mention of misadventure at the time of the procedure; Z95.1 Presence of aortocoronary bypass graft; Z95.5 Presence of coronary angioplasty implant and graft; Z79.02 Long term (current) use of antithrombotics/antiplatelets; Z91.81 History of falling

== ENCOUNTER 2016-09-05 18:16 | Inpatient (IN) | payer OTHER, BC ==
[2016-09-05 20:16] VITALS: BMI 23.8
[2016-09-05] MEDS: Nitroglycerin 2% Ointment Foilpak UD TOP SCH (23:34)
[2016-09-06] MEDS: Nitroglycerin 2% Ointment Foilpak UD TOP SCH ×3 (05:57→18:39)
--- NOTE | 2016-09-06 10:39 | PN ---
DATE: 09/06/2016 The patient is in the TCU. PHYSICAL EXAMINATION: VITAL SIGNS: Blood pressure is 83/50. The heart rate is in the 80s. The patient is afebrile. HEAR T: Physical exam is unchanged with a systolic murmur. IMPRESSION: 1. Critical aortic stenosis. 2. End-stage renal disease. 3. History of coronary artery bypass surgery. 4. Coronary artery disease. PLAN: The patient was sent to [facility] for an outpatient evaluation for TAVR. He is sched uled for TAVR on Saturday of next week. Preston Vasquez MD cc: [phone] TT: 09/06/2016 10:39:01 Confirmation # [id number] Dictation # [id number] lindsey
[2016-09-06] MEDS: Febuxostat [Uloric] 40 MG PO SCH (13:45)
[2016-09-06 14:59] LABS: ADD MANUAL DIFF? NO
[2016-09-06 15:02] LABS: BASO # 0.03 [, K/mm3] (0.0-2.0); BASO % 0.7 % (0.0-3.0); EOS # 0.3 (0.0-0.7); EOS % 6.9 % (1.5-5.0); GRAN # 3.17 (1.4-6.5); GRAN % 68.7 % (50.0-68.0); HEMATOCRIT 30.7 % (42.0-52.0); LYMPH # 0.8 (1.2-3.4); LYMPH % 16.3 % (22.0-35.0); MEAN CORPUSCULAR HEMOGLOBIN 33.2 pg (25.0-35.0); MEAN CORPUSCULAR HGB CONC 33.6 g/dl (31.0-37.0); MEAN PLATELET VOLUME 9.3 fl (7.0-11.0); MONO # 0.3 (0.1-0.6); MONO % 7.4 % (1.0-6.0); PLATELET COUNT 105 [, 10^3/uL] (120.0-450.0); RED CELL DISTRIBUTION WIDTH 17.3 % (11.5-14.5); WHITE BLOOD COUNT 4.6 [, 10^3/ul] (4.5-11.0)
[2016-09-06 15:11] LABS: CALCIUM 9.1 mg/dL (8.4-10.5); MAGNESIUM 2.3 mg/dL (1.7-2.2); PHOSPHOROUS 4.4 mg/dL (2.5-4.5); POTASSIUM 4.1 mmol/L (3.6-5.0); TOTAL PROTEIN 6.4 g/dL (5.8-8.3)
[2016-09-07] MEDS: Nitroglycerin 2% Ointment Foilpak UD TOP SCH ×4 (06:38→17:44)
[2016-09-07 06:47] LABS: BILIRUBIN,TOTAL 0.7 mg/dL (0.2-1.3); CALCIUM 8.7 mg/dL (8.4-10.5); POTASSIUM 3.6 mmol/L (3.6-5.0); TOTAL PROTEIN 5.5 g/dL (5.8-8.3)
[2016-09-07] MEDS ORDERED: Vancomycin 1gm in NS 250ml 1 GM/250 ML BAG IVPB STA (08:51)
--- NOTE | 2016-09-07 10:14 | PN ---
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 The patient had a fasciotomy to relieve the steal syndrom e in the left hand. The patient was sent to [facility] to be evaluated for TAVR yesterday, had his consultation and evaluation done and was sent back to TCU; however, complaining of left uppe r extremity swelling, swelling of the left hand and leaking from the left upper extremity and severe discoloration and erythema of the left upper extremity. The patient is afebrile. White count is nor mal at 4600, hemoglobin is 10.3, BUN and creatinine are 28 and 3.1. He has chronic renal disease. W e will ask Dr. Maci Calderon who did his revision and fasciotomy to reassess the patient. Also ID co nsult for possible cellulitis of the left upper extremity and evaluation. Continue hemodialysis. Co ntinue his workup and physical therapy for his eventual TAVR procedure and a septic workup. Gwyn Rivera MD cc: [id number] TT: 09/07/2016 10:13:18 Confirmation # [id number] Dictation # [id number] lindsey
--- NOTE | 2016-09-07 12:13 | CP.PCM.CON ---
History of Present Illness - History of Present Illness History of Present Illness: Vascular Surgery Consult Note. Dr. Calderon 86yo M with PMHx of HTN, Chronic Renal insufficiency on dialysis, DM, TAVR for Aortic Stenosis re-consulted for evaluation of left upper extremity skin changes. Patient with recent left Brachio-subclavian hybrid AV graft on 08/30, complicated with steal and Left arm distal revascularization and interval ligation with fasciotomy of left hand on 08/31. Patient was then transferred to the TCU for further rehab. Vascular Surgery consult was obtained as the left upper extremity was erythematous. Patient denies any burning or increase in his pain compared to post-surgical pain. No F/C. States there is mild discharge from left upper extremity incision. Denies any itching. States that he has been working with occupational therapy and his left hand motion has improved. No CP/ SOB. No Headache. PMHx: HTN, Chronic Renal insufficiency on dialysis, DM, Aortic stenosis s/p TAVR PSHx: TAVR, Left brachio-subclavian hybrid Graft 08/30, Left arm distal revascularization and interval ligation w/ Palmar fasciotomy 08/31 Allergy: Adhesive tape Review of Systems - Review of Systems All systems: reviewed and no additional remarkable complaints except - Constitutional Constitutional: absent: Chills, Fever - Cardiovascular Cardiovascular: absent: Chest Pain, Dyspnea Past Patient History - Infectious Disease Hx of Infectious Diseases: None - Tetanus Immunizations Tetanus Immunization: Unknown - Past Social History Smoking Status: Never Smoked - CARDIAC Hx Cardiac Disorders: Yes - PULMONARY Hx Respiratory Disorders: No - NEUROLOGICAL Hx Neurological Disorder: No - HEENT Hx HEENT Problems: Yes (glasses) Hx Cataracts: Yes (b/l sx) Hx Deafness: Yes (hearing aid left ear) - RENAL Hx Renal Failure: Yes - ENDOCRINE/METABOLIC Hx Diabetes Mellitus Type 2: Yes - HEMATOLOGICAL/ONCOLOGICAL Hx Blood Transfusions: Yes - INTEGUMENTARY Hx Dermatological Problems: No - MUSCULOSKELETAL/RHEUMATOLOGICAL Hx Falls: Yes (08/04/2016) - GASTROINTESTINAL Hx Gastrointestinal Disorders: Yes Hx Gastroesophageal Reflux: Yes - GENITOURINARY/GYNECOLOGICAL Hx Reproductive Disorders: No - PSYCHIATRIC Hx Substance Use: No - SURGICAL HISTORY Other/Comment: today 08/30/16 Left AV fistula,Right chest permacath - ANESTHESIA Hx Anesthesia Reactions: No Hx Malignant Hyperthermia: No Meds Allergies/Adverse Reactions: Allergies Allergy/AdvReac Type Severity Reaction Status Date / Time adhesive tape Allergy RASH Verified 09/06/16 18:29 - Medications Medications: Current Medications Acetaminophen (Tylenol 325mg Tab) 650 mg PO Q4H PRN; Protocol PRN Reason: Pain, moderate (4-7) Last Admin: 09/06/16 13:46 Dose: 650 mg Aspirin (Aspirin Chewable) 81 mg PO DAILY [facility] PRN Reason: Protocol Last Admin: 09/07/16 10:13 Dose: 81 mg Atorvastatin Calcium (Lipitor) 10 mg PO DIN [facility] PRN Reason: Protocol Last Admin: 09/06/16 18:39 Dose: 10 mg Clopidogrel Bisulfate (Plavix) 75 mg PO DAILY [facility] PRN Reason: Protocol Last Admin: 09/07/16 10:16 Dose: 75 mg Docusate Sodium (Colace) 100 mg PO BID [facility] PRN Reason: Protocol Last Admin: 09/07/16 10:14 Dose: 100 mg Heparin Sodium (Porcine) (Heparin) 5,000 units SC 0600,1800 [facility] PRN Reason: Protocol Last Admin: 09/07/16 06:36 Dose: 5,000 units Midodrine (Proamatine) 5 mg PO DAILY [facility] PRN Reason: Protocol Last Admin: 09/07/16 10:16 Dose: 5 mg Nitroglycerin (Nitro-Bid 2% Oint) 1 ea TOP Q6 [facility] PRN Reason: Protocol Last Admin: 09/07/16 06:38 Dose: Not Given Febuxostat [Uloric] (40 Mg) 40 mg PO TTS [facility] Last Admin: 09/06/16 13:45 Dose: 40 mg Ondansetron HCl (Zofran Inj) 4 mg IVP Q4H PRN; Protocol PRN Reason: Nausea/Vomiting Tamsulosin HCl (Flomax) 0.4 mg PO DAILY [facility] PRN Reason: Protocol Last Admin: 09/07/16 10:15 Dose: 0.4 mg Physical Exam - Constitutional Appears: Well, No Acute Distress - Head Exam Head Exam: ATRAUMATIC, NORMAL INSPECTION, NORMOCEPHALIC - ENT Exam ENT Exam: Mucous Membranes Moist - Respiratory Exam Respiratory Exam: NORMAL BREATHING PATTERN - Cardiovascular Exam Cardiovascular Exam: absent: JVD - Extremities Exam Additional comments: Left upper extremity - redness, no induration, no inflammation. Skin edges well approximated with riana. mild Serrosanguinous drainage from inferior aspect of upper arm incision. No odor, no purulent drainage. Arm appears consistent with post-surgical residual hematoma. - Neurological Exam Neurological exam: Alert, Oriented x3 Results - Vital Signs Recent Vital Signs: Last Vital Signs Temp 97.5 F L 09/05/16 19:44 Pulse 88 09/05/16 19:44 Resp 20 09/05/16 19:44 BP 83/50 L 09/05/16 19:44 Pulse Ox - Labs Result Diagrams: 09/06/16 14:45 09/07/16 06:15 Labs: Laboratory Results - last 24 hr 09/06/16 09/06/16 09/07/16 14:45 14:45 06:15 WBC 4.6 RBC 3.10 L Hgb 10.3 L Hct 30.7 L MCV 99.0 MCH 33.2 MCHC 33.6 RDW 17.3 H Plt Count 105 L MPV 9.3 Gran % 68.7 H Lymph % (Auto) 16.3 L [place] % (Auto) 7.4 H Eos % (Auto) 6.9 H Baso % (Auto) 0.7 Gran # 3.17 Lymph # 0.8 L [place] # 0.3 Eos # 0.3 Baso # 0.03 Sodium 132 135 Potassium 4.1 3.6 Chloride 95 L 96 Carbon Dioxide 28 31 Anion Gap 13 12 BUN 42 H 28 H Creatinine 4.1 H 3.1 H Est GFR ( Amer) 17 23 Est GFR (Non-Af Amer) 14 19 Random Glucose 117 H 81 Calcium 9.1 8.7 Phosphorus 4.4 Magnesium 2.3 H Total Bilirubin 1.0 0.7 AST 27 23 ALT 32 33 Alkaline Phosphatase 83 75 Total Protein 6.4 5.5 L Albumin 3.2 2.8 L Globulin 3.2 2.7 Albumin/Globulin Ratio 1.0 L 1.0 L Assessment & Plan - Assessment and Plan (Free Text) Assessment: 86yo M s/p Brachio-subclavian hybrid AV graft on 08/30 complicated with steal and L DRIL w/ palmar fasciotomy on 08/31. Re-consulted for skin changes. - consistent with post-surgical, stable, residual hematoma. - clinically, low suspicion of cellulitis or wound infection - Changed bandage/dressings - Keep wound clean and dry - No further plans for surgical intervention at this time. Discussed case with Dr. Kvng Machado PGY1 surgery pager: [phone]
--- NOTE | 2016-09-07 12:24 | CON ---
DATE: 09/07/2016 REASON FOR CONSULTATION: Severe cardiomyopathy, critical , ESRD. HISTORY OF PRESENTING ILLNESS: An 86-year-old male with CAD, coronary artery bypass graft, congestiv e heart failure, cardiomyopathy, critical , being evaluated for TAVR; ESRD, status post left brachi al subclavian AV graft; steal syndrome, revascularization; anemia, debility, is transferred to the [facility] care unit because of extreme deconditioning. The patient went to the facility for followu p for TAVR evaluation. The patient is scheduled for surgery on Saturday. He appears weak. He yamile es any chest pain. He denies any palpitations. PAST MEDICAL AND SURGICAL HISTORY: As mentioned above, coronary artery disease, coronary artery bypa ss graft, CHF, critical , ESRD, anemia of chronic kidney disease, secondary hypoparathyroidism, rec ent brachial subclavian AV graft, steal syndrome, status post fasciotomy and revascularization. FAMILY HISTORY: Noncontributory. SOCIAL HISTORY: No smoking, no alcohol use, no IV drug abuse. ALLERGIES: No known drug allergies. MEDICATIONS: Aspirin, Colace, Uloric, Flomax, heparin subQ, Lipitor, Nitro-Bid, Plavix, ProAmatine, Tylenol, Zofran. REVIEW OF SYSTEMS: All symptoms are reviewed. Pertinent positives as mentioned in history of presen ting illness, rest unremarkable. PHYSICAL EXAMINATION: GENERAL: Elderly male lying in bed, in mild respiratory distress. VITAL SIGNS: Blood pressure 83/50, heart rate 88, respiratory rate 20, temperature 97.5. HEENT: Normocephalic, atraumatic, positive pallor. NECK: Supple, no JVD. LUNGS: Bilateral equal air entry, basal rales, bilateral rhonchi. CARDIAC: S1, S2, regular rate and rhythm, positive murmur, no rub. ABDOMEN: Soft, distended, nontender, bowel sounds present. EXTREMITIES: 2+ pitting edema of the lower extremities. INTAKE AND OUTPUT: Not charted. LABORATORY DATA: Sodium 135, potassium 3.6, chloride 96, CO2 21, BUN 28, creatinine 3.1, glucose 81, calcium 8.7, albumin 2.8. WBC 4.6, hemoglobin 10.3, hematocrit 30.7, platelets 105. ASSESSMENT: 1. Coronary artery disease, coronary artery bypass graft, congestive heart failure. 2. Critical aortic stenosis. 3. End-stage renal disease. 4. Anemia of chronic kidney disease. 5. Mild hypokalemia. 6. Extreme deconditioning. PLAN: 1. Dialysis tomorrow. 2. Push p.o. intake. 3. Physical therapy as tolerated. 4. Surgical followup for left brachial subclavian graft. Gwen Matt MD cc: 379 TT: 09/07/2016 12:24:09 Confirmation # [id number] Dictation # [id number] mn
--- NOTE | 2016-09-07 16:14 | CON ---
DATE: 09/07/2016 CHIEF COMPLAINT: Left arm erythema and edema times several days. HISTORY OF PRESENT ILLNESS: An 86-year-old Pakistani male with past medical history significant for critical aortic stenosis, scheduled for a TAVR at on Saturday. History of coronary artery diseas e, history of end-stage renal disease and is on hemodialysis, hypertension, and has had left arm shun t. Was admitted with left arm steal syndrome. Was taken to the OR by Dr. Maci Calderon and had a fa sciotomy and the patient's left arm has erythema and edema and infectious consultation requested. REVIEW OF SYSTEMS: Reveals the patient to be comfortable, no fevers, no chills, no chest pain. No a bdominal pain, diarrhea or constipation. No bright red blood per rectum. PAST MEDICAL HISTORY: Significant for critical aortic stenosis and scheduled for TAVR on Saturday, co ronary artery disease, end-stage renal disease on hemodialysis, hypertension. PAST SURGICAL HISTORY: Significant for left arm shunt and coronary artery bypass graft, status post fasciotomy on 08/31/2016. PHYSICAL EXAMINATION: GENERAL: The patient is in bed. VITAL SIGNS: A temperature of 97, blood pressure is 124/70, respiratory rate of 18, heart rate of 90. HEENT: Unremarkable. NECK: Supple. LUNGS: Have decreased breath sounds. HEART: Normal S1, S2. ABDOMEN: Soft, nontender. EXTREMITIES: The arm has diffuse erythema and edema, not warm to touch, does not appear cellulitic a nd appears more consistent with residual hematoma. LABORATORY EXAMINATION: Noted a BUN of 28, creatinine of 3.1. White count of 4.6. Microbiology rev eals the blood cultures are negative. Review of the orders reveals Dr. Rivera has ordered a dose of vancomycin 1 gram x 1 dose stat. ASSESSMENT AND PLAN: This is an 86-year-old male with critical aortic stenosis, coronary artery dise ase, end-stage renal disease on hemodialysis, hypertension, admitted with steal syndrome, statu s post fasciotomy on 08/31/2016 and now with a left upper extremity hematoma. Low suspicion for cellu litis. Dr. Rivera has given a dose of vancomycin. At this point, we will order blood cultures an d will follow the patient closely. He is at risk for developing nosocomial infections. Erasmo Mendoza MD cc: 350 TT: 09/07/2016 16:14:18 Confirmation # [id number] Dictation # [id number] ln
[2016-09-08] MEDS: Nitroglycerin 2% Ointment Foilpak UD TOP SCH ×4 (00:17→19:13)
--- NOTE | 2016-09-08 10:05 | PN ---
DATE: 09/08/2016 SUBJECTIVE: An 86-year-old [place] male with end-stage renal disease on hemodialysis, critical aort ic stenosis, has history of CAD status post open heart surgery. The patient is being prepped for a TAVR procedure at [facility]. He was admitted to the [facility] with a left upper extremity vascular complication with a steal syndrome. The patient is statu s post fasciotomy and change of his vascular access from the left upper extremity to the right chest. The patient is more stable today, less swelling on the arm was re-seen in consultation by Dr. Calderon . Also had a course of antibiotics, vancomycin. Was seen in consultation by Dr. Mendoza. At thi s point there is a low level of suspicion of cellulitis. The patient will be followed up with blood cultures and counts. The patient is more stable today. His arm is less swollen. Vital signs are st able. PLAN: Plan is for possible TAVR early this week, and plan to continue to follow patient for possible early sepsis. Gwyn Rivera MD cc: 356 TT: 09/08/2016 10:04:32 Confirmation # [id number] Dictation # [id number] len
[2016-09-08] MEDS: Febuxostat [Uloric] 40 MG PO SCH (12:22)
[2016-09-08] MEDS: POLYETHYLENE GLYCOL 3350 17 GM/Dose PACKET PO SCH (14:04)
--- NOTE | 2016-09-08 14:22 | PN ---
DATE: 09/08/2016 SUBJECTIVE: The patient is seen sitting in chair. He is awake. He is alert. He is complaining of swelling of the left hand. He denies any chest pain, shortness of breath. PHYSICAL EXAMINATION: GENERAL: Elderly male sitting in chair. VITAL SIGNS: Blood pressure 78/54, heart rate 93, respiratory rate 16, temperature 98. HEENT: Normocephalic, atraumatic, positive pallor. NECK: Supple, no JVD. LUNGS: Bilateral equal air entry, no rales. CARDIAC: S1, S2, regular rate and rhythm, positive murmur, no rub. ABDOMEN: Soft, nondistended, nontender, bowel sounds present. EXTREMITIES: Swelling of the left hand, ecchymosis of the left hand. Hand is warm. LABORATORY DATA: No new labs. CURRENT MEDICATIONS: Aspirin, Colace, Uloric, Flomax, Lipitor, Nitro-Bid, Plavix, ProAmatine, Tyleno l, Zofran. ASSESSMENT: 1. Coronary artery disease, coronary artery bypass graft, congestive heart failure. 2. Critical aortic stenosis. 3. End-stage renal disease. 4. Recent left brachial subclavian AVG. 5. Steal syndrome, status post fasciotomy, devascularization. 6. Constipation. PLAN: 1. Dialysis today. 2. MiraLax 17 grams daily. 3. ProAmatine 10 mg on dialysis days. 4. Awaiting TAVR. Gwen Matt MD cc: 379 TT: 09/08/2016 14:21:05 Confirmation # [id number] Dictation # [id number] lindsey
[2016-09-08 15:41] LABS: ADD MANUAL DIFF? NO
[2016-09-08 15:50] LABS: BASO # 0.03 [, K/mm3] (0.0-2.0); BASO % 0.7 % (0.0-3.0); EOS # 0.3 (0.0-0.7); EOS % 6.5 % (1.5-5.0); GRAN # 2.96 (1.4-6.5); GRAN % 68.7 % (50.0-68.0); HEMATOCRIT 28.6 % (42.0-52.0); LYMPH # 0.7 (1.2-3.4); LYMPH % 16.2 % (22.0-35.0); MEAN CELL VOLUME 99.7 fL (80.0-105.0); MEAN CORPUSCULAR HEMOGLOBIN 33.1 pg (25.0-35.0); MEAN CORPUSCULAR HGB CONC 33.2 g/dl (31.0-37.0); MEAN PLATELET VOLUME 9.5 fl (7.0-11.0); MONO # 0.3 (0.1-0.6); MONO % 7.9 % (1.0-6.0); PLATELET COUNT 94 [, 10^3/uL] (120.0-450.0); RED CELL DISTRIBUTION WIDTH 17.1 % (11.5-14.5); WHITE BLOOD COUNT 4.3 [, 10^3/ul] (4.5-11.0)
[2016-09-08 15:53] LABS: ALB/GLOB RATIO 1.1 (1.1-1.8); BILIRUBIN,TOTAL 0.8 mg/dL (0.2-1.3); CALCIUM 8.8 mg/dL (8.4-10.5); MAGNESIUM 2.3 mg/dL (1.7-2.2); PHOSPHOROUS 3.8 mg/dL (2.5-4.5); POTASSIUM 3.8 mmol/L (3.6-5.0); TOTAL PROTEIN 5.8 g/dL (5.8-8.3)
[2016-09-09] MEDS: Nitroglycerin 2% Ointment Foilpak UD TOP SCH ×4 (02:21→17:31)
--- NOTE | 2016-09-09 03:09 | PN ---
DATE: 09/08/2016 The patient is in bed, seen earlier this morning in 327, bed 2. No fevers or chills. PHYSICAL EXAMINATION: VITAL SIGNS: Temperature is 98, blood pressure is 112/70, respiratory rate of 16. HEENT: Unremarkable. NECK: Supple. LUNGS: Have decreased breath sounds. HEART: Normal S1, S2. ABDOMEN: Soft, nontender. LABORATORY DATA: Reveals a white count of 4.3, hemoglobin of 9, platelets of 94. Chemistries reveal the BUN of 40, creatinine of 3.8. Dr. Rivera's note is reviewed from this morning. ASSESSMENT AND PLAN: This is an 86-year-old male, who was seen earlier this morning in transitional care with critical aortic stenosis, coronary artery disease, end-stage renal disease on hemodialysis, hypertension, and with steal syndrome, status post fasciotomy on 08/31/2016, and now with left upper-extremity hematoma with a little suspicion for cellulitis. The patient was given a dose of va ncomycin by Dr. Rivera. We will check on the blood cultures. The patient is at risk for developi ng nosocomial infections, and review of the orders reveals the patient is off of antibiotics now and he is afebrile, white count normal. We will follow closely with you. Erasmo Mendoza MD cc: 350 TT: 09/09/2016 03:08:30 Confirmation # [id number] Dictation # [id number] vn
--- NOTE | 2016-09-09 09:10 | PN ---
DATE: 09/09/2016 The patient is in bed, in no acute distress. PHYSICAL EXAMINATION: VITAL SIGNS: Temperature is 98, blood pressure is 120/70, respiratory rate of 16. HEENT: Unremarkable. NECK: Supple. LUNGS: Have decreased breath sounds. HEART: Normal S1, S2. ABDOMEN: Soft, nontender. EXTREMITIES: Evaluation of the arm is much improved, no evidence of cellulitis at this point. LABORATORY EXAMINATION: Reveals a white count of 4.3, hemoglobin of 9, platelets of 94. ASSESSMENT AND PLAN: An 86-year-old male seen earlier today in the transitional care with critical a ortic stenosis, coronary artery disease, end-stage renal disease on hemodialysis, hypertension, steal syndrome, status post fasciotomy and left upper extremity hematoma with little suspicion for celluli tis. Currently off of antibiotics and awaiting for blood culture results. Will follow closely with you. Erasmo Mendoza MD cc: 350 TT: 09/09/2016 09:10:28 Confirmation # [id number] Dictation # [id number] en
[2016-09-09] MEDS: POLYETHYLENE GLYCOL 3350 17 GM/Dose PACKET PO SCH (09:43)
--- NOTE | 2016-09-09 20:53 | PN ---
DATE: 09/09/2016 An 86-year-old Croatian male, end-stage renal disease, CAD, aortic stenosis, status post fasciotomy f or steal syndrome in the left upper extremity, change of access to the right subclavian. PHYSICAL EXAMINATION: The patient is afebrile. Vital signs are stable. His left upper extremity cortes s decreased swelling, decreased erythema. He received a dose of vancomycin. He is on hemodialysis. He is being evaluated for a TAVR procedure at [facility] during this week. Vital signs are stable. 12-POINT REVIEW OF SYSTEMS: Unremarkable. . Gwyn Rivera MD cc: 356 TT: 09/09/2016 20:52:54 Confirmation # [id number] Dictation # [id number] mn
[2016-09-10] MEDS: Nitroglycerin 2% Ointment Foilpak UD TOP SCH ×4 (04:30→17:15)
--- NOTE | 2016-09-10 09:52 | PN ---
DATE: 09/10/2016 An 86-year-old Slov[place] male, CAD, status post open heart surgery, aortic stenosis, critical, awaitin g TAVR procedure, status post steal syndrome left upper extremity with fasciotomy and reversal of aristides nt by Dr. Calderon. The patient is on hemodialysis for end-stage renal disease. The swelling is less in the left upper extremity. There is good feeling, good sensation, good pulses. He is receiving dial ysis from a shunt in the right subclavian. The patient will be transferred to [facility] the next 2 days for TAVR procedure. PLAN: To continue physical therapy, occupational therapy and await TAVR procedure. Gwyn Rivera MD cc: 356 TT: 09/10/2016 09:52:06 Confirmation # [id number] Dictation # [id number] en
[2016-09-10] MEDS: POLYETHYLENE GLYCOL 3350 17 GM/Dose PACKET PO SCH (10:08)
--- NOTE | 2016-09-10 14:31 | CP.PCM.PN ---
Subjective - Date & Time of Evaluation Date of Evaluation: 09/10/16 Time of Evaluation: 07:00 - Subjective Subjective: Vascular Surgery: Dr. Calderon Pt seen and examined. No acute overnight events. States he's feeling fine and denies any complaints at this time. Continues to get dialysis through left arm graft. Denies F/C. Objective - Vital Signs/Intake and Output Vital Signs (last 24 hours): Temp Pulse Resp BP Pulse Ox 97.5 F L 81 16 78/51 L 99 09/10/16 10:00 09/10/16 10:00 09/10/16 10:00 09/10/16 10:00 09/09/16 17:00 - Medications Medications: Current Medications Acetaminophen (Tylenol 325mg Tab) 650 mg PO Q4H PRN; Protocol PRN Reason: Pain, moderate (4-7) Last Admin: 09/09/16 23:34 Dose: 650 mg Aspirin (Aspirin Chewable) 81 mg PO DAILY [facility] PRN Reason: Protocol Last Admin: 09/10/16 10:07 Dose: 81 mg Atorvastatin Calcium (Lipitor) 10 mg PO DIN [facility] PRN Reason: Protocol Last Admin: 09/09/16 18:01 Dose: 10 mg Clopidogrel Bisulfate (Plavix) 75 mg PO DAILY [facility] PRN Reason: Protocol Last Admin: 09/10/16 10:10 Dose: 75 mg Docusate Sodium (Colace) 100 mg PO BID [facility] PRN Reason: Protocol Last Admin: 09/10/16 10:08 Dose: 100 mg Heparin Sodium (Porcine) (Heparin) 5,000 units SC 0600,1800 [facility] PRN Reason: Protocol Last Admin: 09/10/16 05:36 Dose: 5,000 units Midodrine (Proamatine) 5 mg PO DAILY [facility] PRN Reason: Protocol Last Admin: 09/10/16 10:33 Dose: 5 mg Midodrine (Proamatine) 10 mg PO DAILY [facility] Last Admin: 09/10/16 10:34 Dose: Not Given Nitroglycerin (Nitro-Bid 2% Oint) 1 ea TOP Q6 [facility] PRN Reason: Protocol Last Admin: 09/10/16 12:28 Dose: Not Given Febuxostat [Uloric] (40 Mg) 40 mg PO TTS [facility] Last Admin: 09/08/16 12:22 Dose: 40 mg Ondansetron HCl (Zofran Inj) 4 mg IVP Q4H PRN; Protocol PRN Reason: Nausea/Vomiting Polyethylene Glycol (Miralax) 17 gm PO DAILY [facility] Last Admin: 09/10/16 10:08 Dose: Not Given Tamsulosin HCl (Flomax) 0.4 mg PO DAILY [facility] PRN Reason: Protocol Last Admin: 09/10/16 10:09 Dose: 0.4 mg - Labs Labs: 09/08/16 15:00 09/08/16 15:00 - Constitutional Appears: Well, No Acute Distress - Head Exam Head Exam: ATRAUMATIC, NORMOCEPHALIC - Eye Exam Eye Exam: Normal appearance - ENT Exam ENT Exam: Mucous Membranes Moist - Respiratory Exam Respiratory Exam: NORMAL BREATHING PATTERN - Cardiovascular Exam Cardiovascular Exam: RRR - GI/Abdominal Exam GI & Abdominal Exam: Soft. absent: Distended, Tenderness - Extremities Exam Additional comments: L arm incision clean, dry, intact with riana in place, L AV graft with palpable thrill. Swelling much improved compared to prior exams - Neurological Exam Neurological Exam: Alert, Awake, Oriented x3 - Skin Skin Exam: Dry, Warm Assessment and Plan - Assessment and Plan (Free Text) Assessment: 86M s/p brachio-subclavian hybrid graft; POD#11 Plan: - graft continues to be functional & is being used for dialysis - continue PRN dressing changes to left arm - Keep left arm elevated to help with edema; already much improved - d/w Dr. Kvng Arechiga, PGY-2 Surgery
--- NOTE | 2016-09-10 18:28 | PN ---
DATE: 09/10/2016 SUBJECTIVE: The patient is seen sitting in a chair. He is awake, her is alert, he is comfortable. OBJECTIVE: VITAL SIGNS: Blood pressure 86/68, heart rate 87, respiratory rate 18, temperature 98. HEENT: Normocephalic and atraumatic. EXTREMITIES: Positive swelling of the left upper extremity. Has 2+ pitting edema of the lower extre mities. LABORATORY DATA: No new labs. ASSESSMENT AND PLAN: 1. Congestive heart failure, coronary artery disease, coronary artery bypass graft. 2. Critical atrial fibrillation. 3. End-stage renal disease. 4. Anemia. PLAN: 1. Stable dialysis on Saturday. 2. Dialysis tomorrow. 3. Continue physical therapy. 4. Awaiting TAVR. Gwen Matt MD cc: [phone] TT: 09/10/2016 18:27:01 Confirmation # [id number] Dictation # [id number] dn
--- NOTE | 2016-09-10 22:19 | PN ---
DATE: 09/10/2016 SUBJECTIVE: The patient seen earlier today. The patient is in bed in no acute distress. PHYSICAL EXAMINATION: VITAL SIGNS: Temperature is 98, blood pressure is 120/70, respiratory rate of 16. HEENT: Unremarkable. NECK: Supple. LUNGS: Have decreased breath sounds. HEART: Normal S1, S2. ABDOMEN: Soft. EXTREMITIES: Examination of the arm appears markedly much improved. Review of the microbiology reveals the blood cultures are no growth in 24-hours to 48-hours. ASSESSMENT AND PLAN: This is an 86-year-old male seen earlier today care, critical aortic sten osis, coronary artery disease, end-stage renal disease on hemodialysis, hypertension, steal syndrome, status post fasciotomy, left upper extremity hematoma with little suspicion for cellulitis, currentl y off of antibiotics. Blood culture is negative. The patient for possible transfer to [facility] or [facility]. Erasmo Mendoza MD cc: 350 TT: 09/10/2016 22:18:48 Confirmation # [id number] Dictation # [id number] dn
[2016-09-11] MEDS: Nitroglycerin 2% Ointment Foilpak UD TOP SCH ×4 (00:28→19:34)
--- NOTE | 2016-09-11 08:53 | PN ---
DATE: 09/11/2016 An 86-year-old [place] male in TCU, awaiting a TAVR procedure in the morning. The patient is status post fasciotomy. The left hand and left upper arm are markedly less swollen and less edematous. He is afebrile. Vital signs are stable. He is tolerating his diet well. He is doing physical therapy and occupational therapy. The plan is for a TAVR procedure in the morning. Gwyn Rivera MD cc: [id number] TT: 09/11/2016 08:52:43 Confirmation # [id number] Dictation # [id number]
[2016-09-11] MEDS: Febuxostat [Uloric] 40 MG PO SCH (09:59)
[2016-09-11] MEDS: POLYETHYLENE GLYCOL 3350 17 GM/Dose PACKET PO SCH (10:04)
[2016-09-11 16:11] LABS: ADD MANUAL DIFF? NO
[2016-09-11 16:22] LABS: BASO # 0.03 [, K/mm3] (0.0-2.0); BASO % 0.6 % (0.0-3.0); EOS # 0.2 (0.0-0.7); EOS % 4.9 % (1.5-5.0); GRAN # 3.32 (1.4-6.5); GRAN % 70.5 % (50.0-68.0); HEMATOCRIT 30.9 % (42.0-52.0); LYMPH # 0.8 (1.2-3.4); MEAN CORPUSCULAR HGB CONC 32.4 g/dl (31.0-37.0); MEAN PLATELET VOLUME 9.6 fl (7.0-11.0); MONO # 0.3 (0.1-0.6); PLATELET COUNT 128 [, 10^3/uL] (120.0-450.0); RED CELL DISTRIBUTION WIDTH 17.3 % (11.5-14.5); WHITE BLOOD COUNT 4.7 [, 10^3/ul] (4.5-11.0)
[2016-09-11 16:27] VITALS: PULSE 65; TEMP 97.4
[2016-09-11 16:32] LABS: ALB/GLOB RATIO 1.1 (1.1-1.8); CALCIUM 9.2 mg/dL (8.4-10.5); MAGNESIUM 2.4 mg/dL (1.7-2.2); POTASSIUM 4.2 mmol/L (3.6-5.0); TOTAL PROTEIN 6.3 g/dL (5.8-8.3)
--- NOTE | 2016-09-11 20:09 | CP.PCM.PN ---
Subjective - Date & Time of Evaluation Date of Evaluation: 09/11/16 Time of Evaluation: 12:00 - Subjective Subjective: Comfortable in bed, afebrile, not in distress, no pain in the left arm. Objective - Vital Signs/Intake and Output Vital Signs (last 24 hours): Temp Pulse Resp BP Pulse Ox 97.4 F L 65 20 91/46 L 95 09/11/16 16:00 09/11/16 16:00 09/11/16 16:00 09/11/16 16:00 09/11/16 16:00 - Medications Medications: Current Medications Acetaminophen (Tylenol 325mg Tab) 650 mg PO Q4H PRN; Protocol PRN Reason: Pain, moderate (4-7) Last Admin: 09/09/16 23:34 Dose: 650 mg Aspirin (Aspirin Chewable) 81 mg PO DAILY [facility] PRN Reason: Protocol Last Admin: 09/11/16 09:58 Dose: 81 mg Atorvastatin Calcium (Lipitor) 10 mg PO DIN [facility] PRN Reason: Protocol Last Admin: 09/11/16 19:34 Dose: Not Given Clopidogrel Bisulfate (Plavix) 75 mg PO DAILY [facility] PRN Reason: Protocol Last Admin: 09/11/16 10:01 Dose: 75 mg Docusate Sodium (Colace) 100 mg PO BID [facility] PRN Reason: Protocol Last Admin: 09/11/16 18:00 Dose: Not Given Heparin Sodium (Porcine) (Heparin) 5,000 units SC 0600,1800 [facility] PRN Reason: Protocol Last Admin: 09/11/16 19:34 Dose: Not Given Midodrine (Proamatine) 5 mg PO DAILY [facility] PRN Reason: Protocol Last Admin: 09/11/16 10:02 Dose: Not Given Midodrine (Proamatine) 10 mg PO DAILY [facility] Last Admin: 09/11/16 10:01 Dose: 10 mg Nitroglycerin (Nitro-Bid 2% Oint) 1 ea TOP Q6 [facility] PRN Reason: Protocol Last Admin: 09/11/16 19:34 Dose: Not Given Febuxostat [Uloric] (40 Mg) 40 mg PO TTS [facility] Last Admin: 09/11/16 09:59 Dose: 40 mg Ondansetron HCl (Zofran Inj) 4 mg IVP Q4H PRN; Protocol PRN Reason: Nausea/Vomiting Polyethylene Glycol (Miralax) 17 gm PO DAILY [facility] Last Admin: 09/11/16 10:04 Dose: Not Given Tamsulosin HCl (Flomax) 0.4 mg PO DAILY [facility] PRN Reason: Protocol Last Admin: 09/11/16 10:00 Dose: 0.4 mg - Labs Labs: 09/11/16 15:50 09/11/16 15:50 - Constitutional Appears: Non-toxic, No Acute Distress - Head Exam Head Exam: NORMAL INSPECTION - ENT Exam ENT Exam: Mucous Membranes Moist - Neck Exam Neck Exam: absent: Lymphadenopathy, Meningismus - Respiratory Exam Respiratory Exam: Decreased Breath Sounds - Cardiovascular Exam Cardiovascular Exam: +S1, +S2 - GI/Abdominal Exam GI & Abdominal Exam: Soft. absent: Tenderness Assessment and Plan - Assessment and Plan (Free Text) Plan: Assessment left upper extremity hematoma, clinically improving, without evidence of infection CAD aortic stenosis ESRD on HD S/P fasciotomy Plan Continue to monitor off antibiotics; for transfer to [facility] tomorrow for TAVR procedure
[2016-09-11 22:45] VITALS: BP 94/51; RESP 22
[2016-09-11 22:57] VITALS: O2SAT 98
[2016-09-12] MEDS: Nitroglycerin 2% Ointment Foilpak UD TOP SCH ×2 (00:34→06:24)
--- NOTE | 2016-09-12 01:08 | PN ---
DATE: 09/11/2016 SUBJECTIVE: The patient is seen sitting in chair. The is at bedside. The patient is awake and alert. He denies any pain. He denies any shortness of breath. PHYSICAL EXAMINATION: GENERAL: sitting in chair. VITAL SIGNS: Blood pressure 86/68, heart rate 74, respiratory rate 18, temperature 98. HEENT: Normocephalic, atraumatic. NECK: Supple, no JVD. LUNGS: Bilateral equal air entry, no rales. CARDIAC: S1, S2, regular rate and rhythm, positive murmur. ABDOMEN: Soft, nondistended. EXTREMITIES: Decreased edema of the left hand, good color. 2+ pitting edema of the lower extremitie s. LABORATORY DATA: WBC 4.7, hemoglobin 10, hematocrit 30.9, platelets 128. Sodium 134, potassium 4.2, chloride 96, CO2 28, BUN 39, creatinine 2.9, glucose 114, calcium 9.2, phosphorus 4.0, magnesium 2.4 , albumin 3.3. ASSESSMENT: 1. Critical aortic stenosis. 2. Coronary artery disease, coronary artery bypass graft, congestive heart failure. 3. Endstage renal disease. 4. Anemia. PLAN: 1. Dialysis today. 2. Scheduled for TAVR tomorrow. 3. Continue physical therapy. Gwen Matt MD cc: [id number] TT: 09/12/2016 01:07:08 Confirmation # [id number] Dictation # [id number] judy
--- NOTE | 2016-09-12 10:01 | DS ---
The patient is an 86-year-old [place] male transferred to [facility] this morning for TAVR procedure, status post fasciotomy of the left upper extremity because of steal syndrome, history of end-stage renal disease, CAD status post open heart surgery with critical aortic stenosis. The patie nt is transferred in good condition for a TAVR procedure. FINAL DISCHARGE DIAGNOSES: Critical aortic stenosis, has steal syndrome in the left upper extremity, status post fasciotomy, end-stage renal disease on hemodialysis, coronary artery disease. Gwyn Rivera MD cc: [id number] TT: 09/12/2016 10:00:04 jn
== END 2016-09-12 06:43 | disposition short-term general hospital (02) | DRG 945 ==
LOC: TRCU 18:16
PROVIDERS: ADMIT Internal Medicine; ATTEND Internal Medicine
PROC: 5A1D60Z (ICD-10-PCS; 2016-09-06)
PROC: F07Z9FZ Gait Training/Functional Ambulation Treatment using Assistive, Adaptive, Supportive or Protective Equipment (ICD-10-PCS; principal; 2016-09-08)
PROC: F07L6YZ Therapeutic Exercise Treatment of Musculoskeletal System - Lower Back / Lower Extremity using Other Equipment (ICD-10-PCS; 2016-09-08)
PROC: F08Z4ZZ Home Management Treatment (ICD-10-PCS; 2016-09-10)
DX: T82.898D Other specified complication of vascular prosthetic devices, implants and grafts, subsequent encounter (principal); N18.6 End stage renal disease; I13.2 Hypertensive heart and chronic kidney disease with heart failure and with stage 5 chronic kidney disease, or end stage renal disease; I50.9 Heart failure, unspecified; I97.621 Postprocedural hematoma of a circulatory system organ or structure following other procedure; E11.22 Type 2 diabetes mellitus with diabetic chronic kidney disease; I35.0 Nonrheumatic aortic (valve) stenosis; I25.10 Atherosclerotic heart disease of native coronary artery without angina pectoris; Y83.2 Surgical operation with anastomosis, bypass or graft as the cause of abnormal reaction of the patient, or of later complication, without mention of misadventure at the time of the procedure; D63.1 Anemia in chronic kidney disease; E87.6 Hypokalemia; K59.00 Constipation, unspecified; Z95.1 Presence of aortocoronary bypass graft; Z99.2 Dependence on renal dialysis